=== PATIENT | female | born 1940 | race Caucasian/White ===

== ENCOUNTER 2016-12-11 16:08 | Inpatient (IN) | payer MEDICARE, OTHER ==
[2016-12-11 17:54] LABS: Hematocrit 42.8 % (37.0-47.0); Hemoglobin 13.9 gm/dL (12.5-16.0); Mean Cell Volume 95.7 fl (78-100); Mean Corpuscular Hemoglobin 31.1 pg (27-31); Mean Corpuscular Hgb Conc 32.5 g/dl (32-36); Mean Platelet Volume 11.5 fl (6.0-9.5); Neutrophil # 1.6 K/mm3 (1.3-6.0); Neutrophil % 41.4 % (42-75.0); Platelet Count 122 K/mm3 (150-450); Red Blood Count 4.47 M/mm3 (4.2-5.4); Red Cell Distribution Width 12.2 % (11.5-14.0); White Blood Count 3.9 K/mm3 (4.0-10.5)
[2016-12-11 18:15] LABS: ALT 18 U/L (19-67); AST 15 U/L (0-48); Albumin * 3.3 gm/dl (3.4-5.0); Alkaline Phosphatase * 51 U/L (50-170); Anion Gap 12.9 mmol/L (6.8-13.8); BUN/Creatinine Ratio 13.6 (9.0-21.6); Bilirubin, Total 0.6 mg/dL (0.0-1.1); Blood Urea Nitrogen 12 mg/dL (3-23); Ca. Corrected For Albumin 9.1 mg/dL (8.4-10.2); Calcium * 8.9 mg/dL (7.9-10.9); Carbon Dioxide 29.5 mmol/L (24-32.6); Chloride 101 mmol/L (97-106); Glucose * 102 mg/dL (70-110); Potassium 3.4 mmol/L (3.4-4.6); Sodium 140 mmol/L (132-142); Total Protein 7.4 gm/dL (6.2-8.2); Troponin I Less than 0.017 ng/ml (0.00-0.10)
--- NOTE | 2016-12-11 18:43 | ERNOTE ---
Date of Service: 12/11/16 Time Seen by Provider: 12/11/16 17:15 Stated Complaint: PNEUMONIA Presenting Symptoms:: cough, other - weakness, lightheadedness Source: patient, family, RN notes reviewed, past records Exam Limitations: no limitations Immunizations: IMMUNIZATION HX Immunizations Up to Date Yes History of Influenza Vaccine No Hx Pneumococcal Vaccination Yes Allergies/Adverse Reactions: Allergies Gold Salts Allergy (Intermediate, Verified 12/11/16 16:56) Hives - Pain Score Pain Score #1 Pain Score: 0 - History of Present Ilness Narrative: 76 y/o female brought to the ED by her family for a cough, weakness and lightheadedness that began today. She was discharged from [facility] 2 days ago. She had been treated for pneumonia. She is currently on Biaxin. She also reports having chest pain during her episodes of lightheadedness. Her symptoms seem to start with exertion but improve with rest. She was to see pulmonology for f/u of lung nodules today, but began feeling ill when she was getting ready for her appointment. She reports having COPD but has never been a smoker. Date (Duration): 12/11/16 Timing: intermittent Frequency/Possible Cause: Reports: unknown cause Modifying Factors - Improves: Reports: rest Modifying Factors - Worsens: Reports: activity Associated Symptoms: Reports: chest pain/soreness, cough, shortness of breath, lightheadedness. Denies: wheezing, facial pain, nasal congestion, nasal drainage, dizziness, earache, headache, sore throat, muscle aches Prior Treatment: Reports: recently seen, treated by physician, recently hospitalized, currently on antibiotics Review of Systems - Review of Systems Constitutional: Present: recent illness, weakness, fatigue, malaise. Absent: fever, chills EYE: Present: no symptoms reported ENT: Present: See HPI Respiratory: Present: See HPI Cardiology: Present: See HPI Gastrointestinal/Abdominal: Present: nausea, diarrhea, eating less, drinking less. Absent: vomiting Genitourinary: Absent: frequency, dysuria Musculoskeletal: Present: See HPI Skin: Present: no symptoms reported Neurological: Present: See HPI Endocrine: Present: no symptoms reported Hematologic/Lymphatic: Present: no symptoms reported - Patient's Past Medical History Patient History - Medical: Rheumatoid Arthritis, UTI'S Patient History - Cardiac/Respiratory: COPD, Hypertension, Pneumonia Patient History - Cancer: No Hx of Cancer Patient History - Surgical Procedures: Noncontributory Patient History - Other: Immunosuppresive Tx >3mo LMP (females 10-50): Menopausal - Social History Living Situations: spouse Psych History: No pertinent hx Smoking Status: Never smoker Alcohol Use: none Drug Use: none - Immunizations Immunizations Up to Date: Yes Hx Pneumococcal Vaccination: Yes History of Influenza Vaccine: No Physical Exam - Physical Exam General Appearance: Present: wd/wn, alert, mild distress, obese, other - appears uncomfortable Eye Exam: Normal inspection: bilateral, PERRL: bilateral Ears, Nose, Throat: Present: normal ENT inspection, hearing grossly normal, normal pharynx. Absent: abnormal TM (R), abnormal TM (L), nasal congestion, sinus pain/drainage Neck: Present: normal inspection, nontender, supple Respiratory: Present: no respiratory distress, accessory muscle use - mild dyspnea, expiration (prolonged), rales - left lower lung Cardiovascular/Chest: Present: regular rate, rhythm, no murmur, normal peripheral pulses Gastrointestinal/Abdominal: Present: normal bowel sounds, nontender, nondistended, soft Extremity Exam: Present: normal inspection, no edema Neurological Exam: Present: alert, oriented, normal mood/affect Skin Exam: Present: warm/dry, pallor ED Progress - Results and Orders Patient's Lab Results:: I have reviewed the patient's lab results. - Vital Signs Patient's Vital Signs:: I have reviewed the patient's vital signs. Vital Signs: Vital Signs 12/11/16 16:48 Temperature 35.8 C L Pulse Rate 88 Respiratory 16 Rate Blood Pressure 185/107 O2 Sat by Pulse 92 Oximetry - EKG EKG: NSR EKG read: Reviewed by me - X-Ray X-Ray #1 X-Ray: chest Interpretation: Interp. by me X-ray Comments: consolidation present in left lower lobe - Progress/Reassessment Chief Complaint: Cough Progress:: Improved Progress Note-Subjective: 12/11/16 19:45 Patient verbalizes less respiratory difficulty with oxygen at 2L. Hospitalist contacted regarding admission at 1930. Awaiting a call back. 12/11/16 20:10 Admission as observation status for pneumonia with failure of outpatient treatment discussed with Nikok Tavarez NP. Will initiate IV Levaquin as patient was likely already treated with Zithromax and Rocephin during her first hospitalization. Those records continue to be unavailable. Departure - Departure Clinical Impression: Pneumonia Qualifiers: Pneumonia type: due to unspecified organism Laterality: left Lung location: lower lobe of lung Qualified Code(s): J18.1 - Lobar pneumonia, unspecified organism
[2016-12-11 19:08] LABS: Urine Appearance Clear; Urine Bacteria None Seen; Urine Bilirubin 1 mg/dl (NEGATIVE); Urine Blood Negative /ul (NEGATIVE); Urine Color Yellow; Urine Ketone Negative (NEGATIVE); Urine Nitrite Negative (NEGATIVE); Urine Protein Negative (NEGATIVE); Urine RBC None Seen /hpf (0-5); Urine Specific Gravity 1.025 SP.GR. (1.005-1.010); Urine Urobilinogen Normal (NORMAL); Urine WBC None Seen /hpf (0-5); Urine pH 6.5 pH (5.0-7.0)
[2016-12-11] MEDS: LEVOFLOXACIN/D5W 750 MG/150 ML BAG IV SCH (21:03)
[2016-12-11] MEDS ORDERED: ALBUTEROL SULFATE/IPRATROPIUM 3 ML NEBU IH SCH (23:30)
--- NOTE | 2016-12-11 23:37 | HP ---
Chief Complaint - Chief Complaint Date of Service: 12/11/16 Time of Service: 23:14 Chief Complaint: Shortness of breath, non productive cough, weakness, Diarrhea History of Present Illness: 76 years old female adm to the hospital with reports of non productive cough, chills and shortness of breath. PMH significant for COPD, pneumonia, hypertension and RA. Pt stated a week ago she began experiencing increased shortness of breath, non productive cough and chills while at home. She was seen in walk-in clinic, diagnosed with pneumonia and DC home with antibiotics x4 days. she completed the regimen and s/s persist despite treatment. Her family brought her to [facility] where she was adm and treated in-pt x3 days and DC Wednesday with oral antibiotic ( Biaxin). Today pt was seen at [facility] ER due to reports of continued cough, shortness of breath, lightheadedness , weakness and diarrhea. She denies exposure to other sick person, no fever or chills and stated she have not been using her medications for her COPD recently. Pt stated since she started on the antibiotic regimen she has been having diarrhea. Last bowel movement was earlier before this adm. - Patient's Past Medical History Patient History - Medical: Rheumatoid Arthritis, UTI'S Patient History - Cardiac/Respiratory: COPD, Deep Vein Thrombosis, Hypertension , Pneumonia Patient History - Cancer: No Hx of Cancer Patient History - Surgical Procedures: Appendectomy, Other Patient History - Other: Immunosuppresive Tx >3mo LMP (females 10-50): Menopausal - Family History Father Family History - Medical: Family History - Cardiac/Respiratory: Aneurysm, Coronary Heart Disease - Social History Living Situations: home Psych History: No pertinent hx Smoking Status: Never smoker Have you smoked in the past 12 months: No Alcohol Use: none Drug Use: none - Immunizations Immunizations Up to Date: Yes Hx Pneumococcal Vaccination: Yes History of Influenza Vaccine: No Review Of Systems (GEN) - Review of Systems Generalized/Overall Review: Present: Chills EENTM: Present: No Symptoms Reported Respiratory: Present: Cough, Shortness of Breath Cardiac: Present: No Symptoms Reported Abdominal: Present: Diarrhea Genitourinary: Present: Frequency, Incontinent Musculoskeletal: Present: Joint Pain Neurological: Present: No Symptoms Reported Skin: Present: No Symptoms Reported Endocrine: Present: No Symptoms Reported Allergies/Adverse Reactions: Allergies Allergy/AdvReac Type Severity Reaction Status Date / Time Gold Salts Allergy Intermediate Hives Verified 12/11/16 16:56 Iodinated Contrast Media - Allergy Intermediate Swelling Verified 12/11/16 21:20 IV Dye of Face Home Medications: HOME MEDICATIONS Budesonide/Formoterol Fumarate [Symbicort 160-4.5 Mcg Inhaler] 2 puff IH BID 01/22 [Last Taken 12/11/16] Leflunomide 20 mg PO DAILY 12/11/16 [Last Taken 12/11/16] Losartan Potassium [Cozaar] 50 mg PO BID 12/11/16 [Last Taken 12/11/16] Metoprolol Tartrate [Lopressor] 100 mg PO BID 12/11/16 [Last Taken 12/11/16] Sulfasalazine [Sulfazine] 1,000 mg PO BID 12/11/16 [Last Taken 12/11/16] amLODIPine BESYLATE [Norvasc] 5 mg PO DAILY 12/11/16 [Last Taken 12/11/16] Exam - Exam Vital Signs: Vital Signs - Last Taken Temp 36.4 C L 12/11/16 21:07 Pulse 88 12/11/16 21:07 Resp 18 12/11/16 21:07 BP 137/92 12/11/16 21:07 Pulse Ox 93 12/11/16 21:07 Constitutional: Present: Alert, Oriented x3, Cooperative, Well developed, No distress, Elderly, Obese ENT Exam: Present: moist mucous membranes Eye Exam: bilateral eye: PERRL Neck: Present: full range of motion Back Exam: Present: normal inspection, no CVA tenderness, no vertebral tenderness Breasts: Present: Exam deferred Respiratory: Present: chest non-tender, normal breath sounds, no respiratory distress, no accessory muscle use, rales Cardiovascular/Chest: Present: normal peripheral pulses, regular rate, rhythm, no chest tenderness, no edema, no gallop, no JVD, no murmur Peripheral Pulses: dorsalis-pedis (R): 2+, dorsalis-pedis (L): 2+ Abdomen: Present: Normal bowel sounds, soft, nontender, nondistended, no rebound tenderness /Rectal: Present: Exam deferred Extremity: Present: normal range of motion, non-tender, normal inspection, no pedal edema, no calf tenderness Skin Exam: Present: normal color, warm/dry, no cyanosis Lymphatic: Present: no adenopathy Neurologic: Present: oriented x 3 Appearance: Present: appropriate appearance Eye contact: Present: good eye contact Thoughts: Present: normal thought pattern Diagnostic Studies: Laboratory Results WBC 3.9 K/mm3 (4.0-10.5) L 12/11/16 17:35 RBC 4.47 M/mm3 (4.2-5.4) 12/11/16 17:35 Hgb 13.9 gm/dL (12.5-16.0) 12/11/16 17:35 Hct 42.8 % (37.0-47.0) 12/11/16 17:35 MCV 95.7 fl (78-100) 12/11/16 17:35 MCH 31.1 pg (27-31) H 12/11/16 17:35 MCHC 32.5 g/dl (32-36) 12/11/16 17:35 RDW 12.2 % (11.5-14.0) 12/11/16 17:35 Plt Count 122 K/mm3 (150-450) L 12/11/16 17:35 MPV 11.5 fl (6.0-9.5) H 12/11/16 17:35 Immature Gran % (Auto) 0.30 % (0.001-0.429) 12/11/16 17:35 Immature Gran # (Auto) 0.01 K/mm3 (0.000-0.0310) 12/11/16 17:35 Neutrophils % 41.4 % (42-75.0) L 12/11/16 17:35 Lymphocytes % 40.5 % (20-51) 12/11/16 17:35 Monocytes % 11.7 % (0.0-9) H 12/11/16 17:35 Eosinophils % 4.6 % (0.0-3.0) H 12/11/16 17:35 Basophils % 1.5 % (0.0-1.0) H 12/11/16 17:35 Nucleated RBC % 0.0 k/mm3 (0-1) 12/11/16 17:35 Neutrophils # 1.6 K/mm3 (1.3-6.0) 12/11/16 17:35 Lymphocytes # 1.6 k/mm3 (1.5-3.5) 12/11/16 17:35 Monocytes # 0.5 k/mm3 (0.0-1.0) 12/11/16 17:35 Eosinophils # 0.2 k/mm3 (0.0-0.7) 12/11/16 17:35 Absolute Basophils 0.1 k/mm3 (0.0-0.1) 12/11/16 17:35 Sodium 140 mmol/L (132-142) 12/11/16 17:35 Plasma Sodium 140 mmol/L (130-142) 12/11/16 17:35 Potassium 3.4 mmol/L (3.4-4.6) 12/11/16 17:35 Chloride 101 mmol/L (97-106) 12/11/16 17:35 Carbon Dioxide 29.5 mmol/L (24-32.6) 12/11/16 17:35 Anion Gap 12.9 mmol/L (6.8-13.8) 12/11/16 17:35 BUN 12 mg/dL (3-23) 12/11/16 17:35 Creatinine 0.88 mg/dL (0.4-1.4) 12/11/16 17:35 Est GFR (Non-Af Amer) 67 mL/min (60-130) 12/11/16 17:35 BUN/Creatinine Ratio 13.6 (9.0-21.6) 12/11/16 17:35 Random Glucose 102 mg/dL (70-110) 12/11/16 17:35 Calcium 8.9 mg/dL (7.9-10.9) 12/11/16 17:35 Calcium Adj for Albumin 9.1 mg/dL (8.4-10.2) 12/11/16 17:35 Total Bilirubin 0.6 mg/dL (0.0-1.1) 12/11/16 17:35 AST 15 U/L (0-48) 12/11/16 17:35 ALT 18 U/L (19-67) L 12/11/16 17:35 Alkaline Phosphatase 51 U/L (50-170) 12/11/16 17:35 Troponin I Less than 0.017 ng/ml (0.00-0.10) 12/11/16 17:35 Total Protein 7.4 gm/dL (6.2-8.2) 12/11/16 17:35 Albumin 3.3 gm/dl (3.4-5.0) L 12/11/16 17:35 Urine Color Yellow 12/11/16 18:40 Urine Appearance Clear 12/11/16 18:40 Urine pH 6.5 pH (5.0-7.0) 12/11/16 18:40 Ur Specific Exchange 1.025 SP.GR. (1.005-1.010) 12/11/16 18:40 Urine Protein Negative mg/dL (NEGATIVE) 12/11/16 18:40 Urine Glucose (UA) Negative mg/dL (NEGATIVE) 12/11/16 18:40 Urine Ketones Negative mg/dL (NEGATIVE) 12/11/16 18:40 Urine Blood Negative /ul (NEGATIVE) 12/11/16 18:40 Urine Nitrate Negative (NEGATIVE) 12/11/16 18:40 Urine Bilirubin 1 mg/dl (NEGATIVE) H 12/11/16 18:40 Urine Ictotest Negative (NEGATIVE) 12/11/16 18:40 Urine Urobilinogen Normal EU/dl (NORMAL) 12/11/16 18:40 Ur Leukocyte Esterase Negative /ul (NEGATIVE) 12/11/16 18:40 Urine RBC None seen /hpf (0-5) 12/11/16 18:40 Urine WBC None seen /hpf (0-5) 12/11/16 18:40 Ur Epithelial Cells 0-5 /hpf (0-5) 12/11/16 18:40 Urine Bacteria None seen (NONE) 12/11/16 18:40 Urine Culture Comments No culture indicated 12/11/16 18:40 Assessment/Plan - Narrative Narrative: Pneumonia Pt stated she was diagnosed with pneumonia 7 days ago. She was treated with oral antibiotics and failed treatment. She was adm to [facility] and treated with IV antbx x3days and DC home with oral antibiotics (Biaxin). However s/s persist Continue with IV antibiotics, nebulizer schedule and encourage use of I/S and supplemented oxygen PRN Mucinex 600mg BID CXR: Left lobe consolidation Blood culture and sputum cultures pending Leukopenia- secondary to Leflunomide use On adm WBC 3.9 Continue to monitor,pt follow up with Hydramatic Specialist. CBC in am COPD likely exacerbation in presence of pneumonia, pt have not been using her maintenance home mediations. Duoneb treatment schedule Encourage use of I/S Continue with symbicort Supplemented oxygen PRN Rheumatoid Arthritis - stable Continue with Leflunomide and Sulfazone Diarrhea- likely due to IV/Oral antibiotics use Pt stated last bowel movement was earlier before this adm. Stool for C-diff pending Lactobacillus daily Hypertension- stable Continue home medication Monitor VS Q shift and pRN. Code Status Full VTE ppx: SCD and ambulate GI ppx: pepcid. Anticipate DC home 0-1 day Time 45 minutes - Assessment/Plan (1) Rheumatoid arthritis Problem: Chronic (2) Pneumonia Problem: Acute Qualifiers: Pneumonia type: due to unspecified organism Laterality: left Lung location: lower lobe of lung Qualified Code(s): J18.1 - Lobar pneumonia, unspecified organism (3) COPD (chronic obstructive pulmonary disease) Problem: Chronic
[2016-12-12] MEDS ORDERED: ALBUTEROL SULFATE/IPRATROPIUM 3 ML NEBU IH ONE (00:26)
[2016-12-12] MEDS: ALBUTEROL SULFATE/IPRATROPIUM 3 ML NEBU IH SCH ×5 (00:34→18:10)
[2016-12-12] MEDS ORDERED: NORMAL SALINE 1,000 ML IV PRN (05:49)
--- NOTE | 2016-12-12 05:52 | PN ---
Subjective - Date and Time Seen Date: 12/12/16 Time: 05:46 Subjective Narrative: Patient seen this morning in bed stated she was feeling hungry and shortness of breath had resolved. She had productive cough overnight with clear sputum. Pt verbalized understanding for the need to be adherent to her COPD medications while at home. her s/s will gradually improve when using medication as prescribed vs not taking them upon discharge and feels like her s/s not improving. Objective - Review of Systems Generalized/Overall Review: Reports: No Symptoms Reported EENTM: Reports: No Symptoms Reported Respiratory: Reports: Cough Cardiac: Reports: No Symptoms Reported Abdominal: Reports: No Symptoms Reported Genitourinary Symptoms: Reports: No Symptoms Reported Musculoskeletal Complaints: Reports: No Symptoms Reported Neurological: Reports: No Symptoms Reported Skin: Reports: No Symptoms Reported Endocrine: Reports: No Symptoms Reported - Vitals Vitals: Last Vital Signs Temp 36.6 C 12/12/16 02:38 Pulse 79 12/12/16 02:38 Resp 16 12/12/16 02:38 BP 113/57 12/12/16 02:38 Pulse Ox 91 12/12/16 02:38 - Exam Constitutional: Present: Alert, Oriented x3, Cooperative, Well developed, No distress ENT Exam: Present: normal ENT inspection, moist mucous membranes Neck: Present: full range of motion Respiratory: Present: chest non-tender, no respiratory distress, no accessory muscle use, decreased breath sounds, rales Cardiovascular/Chest: Present: normal peripheral pulses, regular rate, rhythm, no chest tenderness, no edema Abdomen: Present: Normal bowel sounds, soft, nontender, nondistended, no rebound tenderness /Rectal: Present: Exam deferred Extremity: Present: normal range of motion, non-tender, normal inspection, no pedal edema, no calf tenderness Skin Exam: Present: normal color, warm/dry, no cyanosis Neurologic: Present: oriented x 3 Appearance: Present: appropriate appearance Eye contact: Present: cooperative Thoughts: Present: normal thought pattern Assessment/Plan Plan Narrative: Pneumonia Failed out-pt treatment and was treated in-pt: DC home with Biaxin however s/s persist. Continue with IV Levaquin 750mg Q24hrs. Nebulizer schedule and encourage use of I/S and supplemented oxygen PRN Mucinex 600mg BID CXR: Left lobe consolidation Blood culture and sputum cultures still pending May have repeated CXR in 4 weeks upon discharge Leukopenia- secondary to Leflunomide use On adm WBC 3.9 Continue to monitor,pt follow up with Senior Data Developer. CBC in am COPD likely exacerbation in presence of pneumonia, pt have not been using her maintenance home mediations. Duoneb treatment schedule Encourage use of I/S Continue with symbicort Supplemented oxygen PRN Rheumatoid Arthritis - stable Continue with Leflunomide and Sulfazone Diarrhea- likely due to IV/Oral antibiotics use Last bowel movement yesterday Stool for C-diff pending Initiated Lactobacillus daily Hypertension- stable Continue home medication Monitor VS Q shift and pRN. Code Status Full VTE ppx: SCD and ambulate GI ppx: pepcid. Anticipate DC home later today Time 15 minutes - Problems/Diagnosis (1) Rheumatoid arthritis Problem: Chronic (2) Pneumonia Problem: Acute Qualifiers: Pneumonia type: due to unspecified organism Laterality: left Lung location: lower lobe of lung Qualified Code(s): J18.1 - Lobar pneumonia, unspecified organism (3) COPD (chronic obstructive pulmonary disease) Problem: Chronic
[2016-12-12] MEDS ORDERED: FLUTICASONE/SALMETEROL 14 PUFF DISK.W.DEV IH SCH (07:00)
[2016-12-12] MEDS ORDERED: FLU VACC QS2016-17 36MOS UP/PF 60 MCG/0.5 ML DISP.SYRIN IM ONE (09:00)
[2016-12-12] MEDS: FLUTICASONE/SALMETEROL 14 PUFF DISK.W.DEV IH SCH ×2 (09:27→20:09)
[2016-12-12] MEDS: LACTOBACILLUS ACIDOPHILUS 100 CAP BTL PO SCH (09:27)
[2016-12-12] MEDS: FAMOTIDINE 20 MG TABLET PO SCH (09:28)
[2016-12-12] MEDS: LOSARTAN POTASSIUM 50 MG TABLET PO SCH ×2 (09:28→20:10)
[2016-12-12] MEDS: amLODIPine BESYLATE 5 MG TABLET PO SCH (09:28)
[2016-12-12] MEDS: sulfaSALAzine 500 MG TABLET PO SCH ×2 (09:28→20:09)
[2016-12-12] MEDS: LEFLUNOMIDE 20 MG TABLET PO SCH (09:28)
[2016-12-12] MEDS: predniSONE 20 MG TABLET PO SCH (09:29)
[2016-12-12] MEDS: METOPROLOL TARTRATE 100 MG TABLET PO SCH ×2 (09:29→20:11)
[2016-12-12] MEDS: ACETAMINOPHEN 500 MG TABLET PO PRN ×3 (10:32→20:07)
[2016-12-12] MEDS: ENOXAPARIN SODIUM 40 MG/0.4 ML SYRG SC SCH (15:35)
[2016-12-12] MEDS: LEVOFLOXACIN/D5W 750 MG/150 ML BAG IV SCH (20:54)
[2016-12-13] MEDS: ALBUTEROL SULFATE/IPRATROPIUM 3 ML NEBU IH SCH ×2 (00:37→06:02)
[2016-12-13 05:14] LABS: Hematocrit 38.6 % (37.0-47.0); Hemoglobin 12.7 gm/dL (12.5-16.0); Mean Cell Volume 95.3 fl (78-100); Mean Corpuscular Hemoglobin 31.4 pg (27-31); Mean Corpuscular Hgb Conc 32.9 g/dl (32-36); Mean Platelet Volume 11.3 fl (6.0-9.5); Neutrophil % 64.3 % (42-75.0); Platelet Count 131 K/mm3 (150-450); Red Blood Count 4.05 M/mm3 (4.2-5.4); White Blood Count 4.6 K/mm3 (4.0-10.5)
[2016-12-13 05:24] LABS: Anion Gap 14.7 mmol/L (6.8-13.8); BUN/Creatinine Ratio 14.5 (9.0-21.6); Carbon Dioxide 25.9 mmol/L (24-32.6); Estimated Creat Clear 54.8; Potassium 3.6 mmol/L (3.4-4.6)
--- NOTE | 2016-12-13 06:19 | PN ---
Subjective - Date and Time Seen Date: 12/13/16 Time: 06:09 Subjective Narrative: Patient seen today stated her cough was getting better. she anticipating getting repeated CXR in 4-6 weeks and continued use of her COPD medications upon discharge. She denies fever, chills, shortness of breath or chest pain from cough. Objective - Review of Systems Generalized/Overall Review: Reports: No Symptoms Reported EENTM: Reports: No Symptoms Reported Respiratory: Reports: Cough Cardiac: Reports: No Symptoms Reported Abdominal: Reports: No Symptoms Reported Genitourinary Symptoms: Reports: No Symptoms Reported Musculoskeletal Complaints: Reports: No Symptoms Reported Neurological: Reports: No Symptoms Reported Skin: Reports: No Symptoms Reported Endocrine: Reports: No Symptoms Reported - Vitals Vitals: Last Vital Signs Temp 37.0 C 12/13/16 02:00 Pulse 80 12/13/16 06:02 Resp 20 12/13/16 06:02 BP 124/69 12/13/16 02:00 Pulse Ox 92 12/13/16 06:02 - Abnormal Lab Findings Abnormal Lab Findings: Abnormal Lab Results 12/13/16 12/13/16 Range/Units 04:50 05:00 RBC 4.05 L (4.2-5.4) M/mm3 MCH 31.4 H (27-31) pg Plt Count 131 L (150-450) K/mm3 MPV 11.3 H (6.0-9.5) fl Monocytes % 14.5 H (0.0-9) % Lymphocytes # 0.9 L (1.5-3.5) k/mm3 Anion Gap 14.7 H (6.8-13.8) mmol/L Random Glucose 135 H D (70-110) mg/dL - Exam Constitutional: Present: Alert, Oriented x3, Cooperative, Well developed, No distress, Elderly, Obese ENT Exam: Present: moist mucous membranes Neck: Present: full range of motion Breasts: Present: Exam deferred Respiratory: Present: chest non-tender, normal breath sounds, no respiratory distress, wheezing Cardiovascular/Chest: Present: normal peripheral pulses, regular rate, rhythm, no chest tenderness, no edema, no gallop, no JVD Abdomen: Present: Normal bowel sounds, soft, nontender, nondistended /Rectal: Present: Exam deferred Extremity: Present: normal range of motion, non-tender, normal inspection, no pedal edema, no calf tenderness Skin Exam: Present: normal color, warm/dry Neurologic: Present: oriented x 3 Appearance: Present: appropriate appearance Eye contact: Present: cooperative Thoughts: Present: no apparent hallucination Assessment/Plan Plan Narrative: COPD likely exacerbation in presence of pneumonia, pt have not been using her maintenance home mediations. Duoneb treatment schedule Encourage use of I/S Continue with symbicort and prednisone was started yesterday. Supplemented oxygen PRN Pneumonia Failed out-pt treatment and was treated in-pt: DC home with Biaxin however s/s persist. Continue with IV Levaquin 750mg Q24hrs. Nebulizer schedule and encourage use of I/S and supplemented oxygen PRN Mucinex 600mg BID 12/11/16 Repeated CXR: No acute cardiopulmonary process. Blood culture and sputum cultures no growth May have repeated CXR in 4-6 weeks upon discharge Rheumatoid Arthritis - stable Continue with Leflunomide and Sulfazone Diarrhea- likely due to IV/Oral antibiotics use Last bowel movement was yesterday prior to adm. Stool for C-diff pending Initiated Lactobacillus daily Hypertension- stable Continue home medication Monitor VS Q shift and pRN. Leukopenia- secondary to Leflunomide use- Resolved On adm WBC 3.9--->4.6 WNL Continue follow up with Radiagraph Operator. CBC in am Code Status Full VTE ppx: SCD/ Lovenox and ambulate GI ppx: pepcid. Anticipate DC home Wednesday Time 15 minutes - Problems/Diagnosis (1) Rheumatoid arthritis Problem: Chronic (2) Pneumonia Problem: Acute Qualifiers: Pneumonia type: due to unspecified organism Laterality: left Lung location: lower lobe of lung Qualified Code(s): J18.1 - Lobar pneumonia, unspecified organism (3) COPD (chronic obstructive pulmonary disease) Problem: Chronic
[2016-12-13] MEDS: ACETAMINOPHEN 500 MG TABLET PO PRN ×2 (07:29→20:27)
[2016-12-13] MEDS: METOPROLOL TARTRATE 100 MG TABLET PO SCH ×2 (09:06→20:20)
[2016-12-13] MEDS: LEFLUNOMIDE 20 MG TABLET PO SCH (09:06)
[2016-12-13] MEDS: LACTOBACILLUS ACIDOPHILUS 100 CAP BTL PO SCH (09:06)
[2016-12-13] MEDS: sulfaSALAzine 500 MG TABLET PO SCH ×2 (09:06→20:19)
[2016-12-13] MEDS: FLUTICASONE/SALMETEROL 14 PUFF DISK.W.DEV IH SCH ×2 (09:06→20:18)
[2016-12-13] MEDS: LOSARTAN POTASSIUM 50 MG TABLET PO SCH ×2 (09:07→20:19)
[2016-12-13] MEDS: FAMOTIDINE 20 MG TABLET PO SCH (09:07)
[2016-12-13] MEDS: predniSONE 20 MG TABLET PO SCH (09:07)
[2016-12-13] MEDS: amLODIPine BESYLATE 5 MG TABLET PO SCH (09:07)
[2016-12-13] MEDS: LEVALBUTEROL HCL 1.25 MG/3 ML AMPUL IH SCH ×4 (13:31→18:15)
[2016-12-13] MEDS: ENOXAPARIN SODIUM 40 MG/0.4 ML SYRG SC SCH (14:50)
[2016-12-13] MEDS ORDERED: LEVOFLOXACIN/D5W 750 MG/150 ML BAG IV SCH (21:00)
[2016-12-14] MEDS: LEVALBUTEROL HCL 1.25 MG/3 ML AMPUL IH SCH ×2 (00:22→06:21)
[2016-12-14 05:51] LABS: Anion Gap 12.1 mmol/L (6.8-13.8); BUN/Creatinine Ratio 25.3 (9.0-21.6); Carbon Dioxide 28.1 mmol/L (24-32.6); Estimated Creat Clear 52.3; Potassium 4.2 mmol/L (3.4-4.6)
[2016-12-14 06:40] LABS: Hematocrit 39.2 % (37.0-47.0); Hemoglobin 12.6 gm/dL (12.5-16.0); Mean Cell Volume 96.8 fl (78-100); Mean Corpuscular Hemoglobin 31.1 pg (27-31); Mean Corpuscular Hgb Conc 32.1 g/dl (32-36); Mean Platelet Volume 10.7 fl (6.0-9.5); Neutrophil # 3.2 K/mm3 (1.3-6.0); Neutrophil % 59.5 % (42-75.0); Platelet Count 159 K/mm3 (150-450); Red Blood Count 4.05 M/mm3 (4.2-5.4); Red Cell Distribution Width 12.2 % (11.5-14.0); White Blood Count 5.3 K/mm3 (4.0-10.5)
--- NOTE | 2016-12-14 07:00 | DS ---
(1) Rheumatoid arthritis Problem: Chronic (2) Pneumonia Problem: Acute Qualifiers: Pneumonia type: due to unspecified organism Laterality: left Lung location: lower lobe of lung Qualified Code(s): J18.1 - Lobar pneumonia, unspecified organism (3) COPD (chronic obstructive pulmonary disease) Problem: Chronic Description of Stay: Date of admission: 12/12/16 Date of discharge : 12/14/16 Hospital Course 76 years old female adm to the hospital with reports of non productive cough, chills and shortness of breath. PMH significant for COPD, pneumonia, hypertension and RA. Pt stated a week ago she began experiencing increased shortness of breath, non productive cough and chills while at home. She was seen in walk-in clinic, diagnosed with pneumonia and DC home with antibiotics x4 days. she completed the regimen and s/s persist despite treatment. Her family brought her to [facility] where she was adm and treated in-pt x3 days and DC Wednesday with oral antibiotic ( Biaxin). She was adm at [facility] due to reports of continued cough, shortness of breath, lightheadedness, weakness and diarrhea. She denies exposure to other sick person, no fever or chills and stated she have not been using her medications for her COPD recently. Pt stated since she started on the antibiotic regimen she has been having diarrhea. During this adm she was treated with IV antibiotics, nebulizers and oral Prednisone 40 mg q daily. pt stated her s/s had improved tremendously and diarrhea resolved. Repeated CXR: No acute cardiopulmonary findings. Leukopenia and thrombocytopenia likely due to her medications.Plan to follow up with [facility] upon discharge. Patient instructed that it can take up to 5 days for every day in the hospital before getting back to baseline as far as strength goes. Thus, it will likely take 3+ weeks before the patient feels back to her usual self and the generalized weakness resolves. I also discussed that it can take 4-6 weeks for the cough to resolve following an acute illness like this. Plan of care discussed with pt she verbalized understanding and agree. Procedures Performed: none Results and Findings: Laboratory Tests 12/11/16 12/13/16 12/14/16 17:35 05:00 05:15 WBC 3.9 L 4.6 3.5 L D RBC 4.47 3.81 L Hgb 13.9 11.9 L Hct 42.8 37.6 Plt Count 122 L 131 L 31 L Sodium 140 Potassium 4.2 BUN 22 D Creatinine 0.87 Discharge Disposition: Home self care Disposition: Home self-care Condition: Stable Discharge Activity: Activity as tolerated Discharge Diet: General/regular food Additional Patient Instructions (free text): Follow up with PCP 3-7 days call for appt. Prescriptions (Any new or edited meds): Levalbuterol HCl [Xopenex] 1.25 mg IH Q6HRT 7 Days guaiFENesin [Mucinex] 600 mg PO BID 7 Days predniSONE [Prednisone] 40 mg PO DAILY #5 tablet Complete Home Medications List: Complete Home Medication List: Budesonide/Formoterol Fumarate [Symbicort 160-4.5 Mcg Inhaler] 2 puff IH BID 01/22 Leflunomide 20 mg PO DAILY 12/11/16 Losartan Potassium [Cozaar] 50 mg PO BID 12/11/16 Metoprolol Tartrate [Lopressor] 100 mg PO BID 12/11/16 Sulfasalazine [Sulfazine] 1,000 mg PO BID 12/11/16 amLODIPine BESYLATE [Norvasc] 5 mg PO DAILY 12/11/16 Lactobacillus Acidophilus [Bacid] 1 cap PO DAILY #4 btl 12/14/16 Levalbuterol HCl [Xopenex] 1.25 mg IH Q6HRT 7 Days 12/14/16 guaiFENesin [Mucinex] 600 mg PO BID 7 Days 12/14/16 predniSONE [Prednisone] 40 mg PO DAILY #5 tablet 12/14/16 Amb Orders for Discharge: Chest PA & Lateral * Time Frame: 4 Weeks, Location: Determined By Patient
[2016-12-14] MEDS: amLODIPine BESYLATE 5 MG TABLET PO SCH (08:17)
[2016-12-14] MEDS: FLUTICASONE/SALMETEROL 14 PUFF DISK.W.DEV IH SCH (08:17)
[2016-12-14] MEDS: METOPROLOL TARTRATE 100 MG TABLET PO SCH (08:18)
[2016-12-14] MEDS: LOSARTAN POTASSIUM 50 MG TABLET PO SCH (08:18)
[2016-12-14] MEDS: FAMOTIDINE 20 MG TABLET PO SCH (08:18)
[2016-12-14] MEDS: predniSONE 20 MG TABLET PO SCH (08:20)
[2016-12-14] MEDS: LACTOBACILLUS ACIDOPHILUS 100 CAP BTL PO SCH (08:21)
[2016-12-14] MEDS: sulfaSALAzine 500 MG TABLET PO SCH (08:28)
[2016-12-14] MEDS: LEFLUNOMIDE 20 MG TABLET PO SCH (08:52)
[2016-12-14 10:40] VITALS: BP 111/63
== END 2016-12-14 11:05 | disposition home or self-care (01) | DRG 195 ==
LOC: ER 16:08 → MS 20:13 → OBSVTOIN 12-12 09:26
PROVIDERS: ADMIT Nurse Practitioner Gerontology; ATTEND Internal Medicine
DX: J18.1 Lobar pneumonia, unspecified organism (principal); R53.1 Weakness; J44.9 Chronic obstructive pulmonary disease, unspecified; I10 Essential (primary) hypertension; D72.819 Decreased white blood cell count, unspecified; T39.4X5A Adverse effect of antirheumatics, not elsewhere classified, initial encounter; M06.9 Rheumatoid arthritis, unspecified; Z23 Encounter for immunization
CPT/HCPCS: 36415; 71020; 80048; 80053; 81001; 84484; 85025; 87040; 87070; 87106; 90686; 93005; 94640; 96374; 99284; G0008; G0378

== ENCOUNTER 2016-12-31 16:43 | Observation (INO) | payer MEDICARE, OTHER ==
--- OUTSIDE RECORDS SUMMARY | 2016-12-31 16:49 | XMS REPORT | Continuity of Care Document ---
:1940 Author Organization [facility] [place] [address] Care Team Providers Name Role Phone Juan Luis Perez Primary Care Provider [phone] Source Comments This disclosure is being made pursuant to the [employer] program and maynot contain all information available regarding this patient.[facility] Active Allergies and Adverse Reactions Allergen Noted Date Severity Reactions Comments Gold-Containing Drug Products 08/06/2014 High Hives Lisinopril 08/06/2014 Cough Ridaura 08/06/2014 High Hives Gold Salts Current Medications Be aware that medications may not be up to date as of this document. Alwaysverify current medications with the patient. Prescription Sig. Disp. Refills Start End Date Status Date amLODIPine Take 1 tablet by 90 tablet 3 Active (NORVASC) 5 MG mouth daily. 6 tablet metoprolol Take 1 tablet by 180 tablet 3 Active succinate mouth 2 (two) 6 (TOPROL-XL) 100 MG times daily. 24 hr tablet traMADol (ULTRAM) Take 1 tablet by 90 tablet 5 Active 50 MG tablet mouth 3 (three) 6 times daily. [facility] [phone] leflunomide (ARAVA) Take 1 tablet by 30 tablet 11 Active 20 MG tablet mouth daily. 6 acetaminophen Take 500 mg by Active (TYLENOL) 500 MG mouth every 6 tablet (six) hours as needed for Pain. aspirin 325 MG Take 325 mg by Active tablet mouth daily. budesonide-formoter Inhale 2 puffs 1 Inhaler 4 Active ol (SYMBICORT) into the lungs 2 7 160-4.5 MCG/ACT (two) times inhaler daily. oxybutynin Take 1 tablet by 10 tablet 0 Active (DITROPAN-XL) 10 MG mouth daily. 7 24 hr tablet albuterol (PROAIR Inhale 2 puffs 1 Inhaler 3 Active HFA;PROVENTIL into the lungs 7 HFA;VENTOLIN HFA) every 4 (four) 108 (90 Base) hours as needed MCG/ACT inhaler for Wheezing or Shortness of Breath. albuterol (ACCUNEB) Take 3 mLs by 60 mL 3 Active 0.63 MG/3ML nebulization 7 nebulizer solution every 4 (four) hours as needed for Wheezing or Shortness of Breath. sulfaSALAzine TAKE 2 TABLETS BY 360 tablet 12 Active (AZULFIDINE) 500 MG MOUTH 2 TIMES A 7 tablet DAY losartan (COZAAR) TAKE 1 TABLET BY 180 tablet 3 Active 50 MG tablet MOUTH 2 TIMES A 7 DAY losartan (COZAAR) TAKE 1 TABLET(S) 180 tablet 3 12/29/19 Discontinued 50 MG tablet BY MOUTH 2 TIMES 5 17 PER DAY sulfaSALAzine Take 2 tablets by 360 tablet 3 12/24/19 Discontinued (AZULFIDINE) 500 MG mouth 2 (two) 6 17 tablet times daily. Hydrocodone Take 5 mLs by 120 mL 0 12/15/19 polistirex-cpm ER mouth every 12 7 17 (TUSSIONEX) 10-8 (twelve) hours as MG/5ML suspension needed (for cough. may make drowsy.). clarithromycin Take 1 tablet by 20 tablet 0 12/23/19 Discontinued (BIAXIN) 500 MG mouth 2 (two) 7 17 tablet times daily. Hospital, Clinic, or Ordered Dose Route Frequency Start Date End Date Status Other Facility Administered Medication methylPREDNISolone 80mg IM Once 12/03/2016 Ended acetate (DEPO-MEDROL) 7 injection ipratropium-albuterol 1{each} NEBULIZATION Once 12/06/2016 Ended (DUONEB) 0.5-2.5 (3) 7 MG/3ML nebulizer solution Active Problems Problem Noted Date SOB (shortness of breath) 11/12/2016 Chronic obstructive pulmonary disease (HCC) 11/10/2016 Chest pain 09/09/2016 Dyspnea 09/09/2016 Obesity 09/09/2016 Long-term use of immunosuppressant medication 08/25/2016 Seropositive rheumatoid arthritis (HCC) 06/17/2016 Rheumatoid arthritis (HCC) 06/19/2015 Lumbago 06/19/2015 Encounter for long-term (current) use of other medications 06/19/2015 Muscle cramps 06/19/2015 Most Recent Encounters Date Type Specialty Providers Description 12/29/2016 Refill Rheumatology Jj Pruitt MD 12/28/2016 Telephone Pulmonology Temitope Ortiz, Medication Management GRINDING SUPERVISOR 12/24/2016 Refill Rheumatology Jj Pruitt MD 12/23/2016 Office Visit Pulmonology Zbigniew Wilkins, Chronic obstructive MD pulmonary disease, unspecified COPD type ([facility]) (Primary Dx); Lung nodule 12/06/2016 Clinical Support Radiology Sly, Cough MD Michelle Ohara Shelbey D, RTR 12/06/2016 Office Visit Urgent Care Sly Cough (Primary Dx); MD Lev Acute upper respiratory infection 12/03/2016 Office Visit Urgent Care Abhijit Tan, Acute bronchitis, DO unspecified organism (Primary Dx); Acute maxillary sinusitis, recurrence not specified 11/19/2016 Orders Only Pulmonology Temitope Ortiz, Lung nodules (Primary GRINDING SUPERVISOR Dx) 11/18/2016 Clinical Support Radiology Zbigniew Wilkins, SOB (shortness of MD breath) Marianela Nobles, RT 11/12/2016 Initial consult Pulmonology Zbigniew Wilkins SOB (shortness of MD breath) (Primary Dx); Chronic obstructive pulmonary disease, unspecified COPD type (HCC) 11/12/2016 Clinical Support Respiratory Therapy Zbigniew Wilkins, Chronic obstructive MD pulmonary disease, Andrews, unspecified COPD type Mima Stein, PSYCH COORDINATOR (HCC) (Primary Dx) 11/10/2016 Clinical Support Radiology Nica Cerna, Screening for MD osteoporosis; Family Beth, history of bone cancer Eugenia, ANDRESSA 11/10/2016 Office Visit Rheumatology Jj Pruitt MD arthritis ([facility]) (Primary Dx); Long-term use of immunosuppressant medication; Chronic obstructive pulmonary disease, unspecified COPD type ([facility]); Acute non-recurrent maxillary sinusitis 10/22/2016 Data Import 10/06/2016 Clinical Support Radiology Nica Cerna, Screening mammogram, encounter for Rosmery Rabago, RT 10/06/2016 Office Visit Obstetrics and Nica Cerna, Encounter for Gynecology MD gynecological examination without abnormal finding (Primary Dx); Screening mammogram, encounter for; Screening for osteoporosis; Family history of bone cancer 10/06/2016 Scanned Document Provider, Not In System Immunizations Name Dates Previously Given Next Due Influenza, Inactivated, Trivalent, High Dose, 65Y and 08/17/2016 Older Social History Tobacco Use Types Packs/Day Years Used Date Never Smoker Smokeless Tobacco: Never Used Tobacco Cessation:Counseling Given: No Comments: Alcohol Use Drinks/Week oz/Week Comments No Last Filed Vital Signs Vital Sign Reading Time Taken Blood Pressure 131/72 12/23/2016 2:54 PM BRIDGE DESIGN ENGINEER Pulse 105 12/23/2016 2:54 PM BRIDGE DESIGN ENGINEER Temperature 36.3 C (97.3 F) 12/23/2016 2:54 PM BRIDGE DESIGN ENGINEER Respiratory Rate 20 12/23/2016 2:54 PM BRIDGE DESIGN ENGINEER Height 1.676 m (5' 6") 12/23/2016 2:54 PM BRIDGE DESIGN ENGINEER Weight 113.581 kg (250 lb 6.4 oz) 12/23/2016 2:54 PM BRIDGE DESIGN ENGINEER Body Mass Index 40.44 12/23/2016 2:54 PM BRIDGE DESIGN ENGINEER Oxygen Saturation 92% 12/23/2016 2:54 PM BRIDGE DESIGN ENGINEER Plan of Care Date Type Specialty Providers Description 01/13/2017 Appointment Rheumatology Jj Pruitt MD [address] [place] [address] 1 [place] [address] [phone] (Fax) 01/18/2017 Appointment Pulmonology Zibgniew Wilkins MD [address] [place] [address] [address] [place] [address] [phone] (Fax) 05/17/2017 Appointment Cardiology Aleena Townsend MD [address] [place] [address] [phone] (Fax) 10/08/2017 Appointment Obstetrics and Gynecology Nica Cerna MD [address] [place] [address] [phone] (Fax) 11/22/2017 Appointment Radiology Health Maintenance Due Date Last Done Comments Tetanus/Pertussis (1 - Tdap) 1960 Colonoscopy 1991 Zoster Vaccine 60+ 2001 Pneumococcal Low/Medium Risk 65+ (1 of 2 - PCV13) 2006 Well Adult Visit 10/06/2017 10/06/2016 Influenza Immunization Completed 08/17/2016 Bone Density Completed 11/10/2016 Results from Last 3 Months Manual Differential (12/06/2016 3:45 PM) Component Value Range Neuts% 37(L) 42-76 % Bands % 1 1-10 % Lymphocytes % 52(H) 15-44 % Monocyte % 9 4-13 % Eosinophils % 1 0-6 % Grans (Absolute) 1.2 1.2-7.3 10^3/uL Lymphocytes Absolute 1.6 0.6-3.5 10^3/uL Monos Absolute 0.3 0.2-0.9 10^3/uL Eosinophils Absolute Count 0.0 0.0-0.4 10^3/uL Basophils Absolute 0.0 0.0-0.1 10^3/uL RBC Morphology Normal Normal Platelet Estimate Decreased(A) Normal Narrative Testing performed at [facility], [address] [place] [address].Operations Executive Marco Hayes MD Mycoplasma pneumoniae antibody, IgM (12/06/2016 3:45 PM) Component Value Range Mycoplasma pneumoniae Negative Negative Narrative Testing performed at [facility], [address] [place] [address].Operations Executive Marco Hayes MD CBC auto differential (12/06/2016 3:45 PM)Only the most recent of2 resultswithin the time period is included. Component Value Range WBC 3.1 3.1-11.0 x10^3/uL RBC 4.62 3.60-5.17 x10^6/uL Hemoglobin 14.4 11.1-15.3 g/dL Hematocrit 45.0 33.7-46.0 % MCV 97.4 81.0-98.0 fL MCH 31.2 27.2-33.3 pg MCHC 32.0 31.7-35.6 g/dL RDW 12.7 10.8-14.6 % SD-RDW 44.6 37.0-50.4 fL Platelets 120(L) 147-370 x10^3/uL MPV 11.3 9.1-12.1 fL Specimen BLOOD - Arm, Left Narrative Testing performed at [facility], [facility] [place] [address].Operations Executive Marco Hayes MD Specimen: BLD XR CHEST 2 VIEWS PA AND LAT (12/06/2016 3:44 PM) [place] [address] DIAGNOSTIC IMAGING Name: Kristyn PaulLynda Ordering Phys: Lev Heart Age: 76Date of : 1939 Accession Number: [id number] Date of Service:12/06/2016 Gender: F EXAMINATION:X-rays of the chest HISTORY:Cough, fever of 99 - 103degrees Fahrenheit.Shortness of breath and fatique since Wednesday. TECHNIQUE:2 views COMPARISON:09/05/16 FINDINGS:Heart size is normal.No pneumothorax.Left pericardial fat.Post infectious calcified granulomas disease. No new pulmonary opacity.No pneumonia pulmonary edema. IMPRESSION: 1.No acute pulmonary infiltrates. THIS IS AN ELECTRONICALLY VERIFIED REPORT 12/06/2016 7:56 PM: Sb Garcia Sb Garcia:william Procedure Note Cornelius, External Ris In - Sun Dec 06, 2016 7:58 [place] [address] DIAGNOSTIC IMAGING Name: Humberto Kristyn A. Ordering Phys: Lev Heart Age: 76 Date of : 1940 Accession Number: [id number] Date of Service:12/06/2016 Gender: F EXAMINATION: X-rays of the chest HISTORY: Cough, fever of 99 - 103degrees Fahrenheit. Shortness of breath and fatique since Wednesday. TECHNIQUE: 2 views COMPARISON: 09/05/16 FINDINGS: Heart size is normal. No pneumothorax. Left pericardial fat. Post infectious calcified granulomas disease. No new pulmonary opacity. No pneumonia pulmonary edema. IMPRESSION: 1.No acute pulmonary infiltrates. THIS IS AN ELECTRONICALLY VERIFIED REPORT 12/06/2016 7:56 PM: Sb Garcia D.O. JS:william CT CHEST WO CONTRAST (11/18/2016 12:19 PM) [place] [address] [place] [address] DIAGNOSTIC IMAGING Name: Humberto Kristyn CadetLynda Ordering Phys: Zbigniew Cadet Jameslacey Age: 76Date of : 1939 Accession Number: [id number] Date of Service:11/18/2016 Gender: F EXAMINATION:CT chest, high-resolution protocol without contrast. HISTORY:Increasing shortness of breath over the last few months.Some productive cough as well. COMPARISON:Plain radiographs from 09/05/[address] chests. TECHNIQUE:High-resolution CT protocol of the chest was performed.Sagittal and coronal reformatted images were acquired and reviewed. FINDINGS:Atherosclerotic aorta without aneurysm in the chest or upper abdomen.The aorta is tortuous.Heart size is normal without pericardial effusion.There are calcified and noncalcified small lymph nodes in the chest without lymphadenopathy.Some calcifications are seen within the left lobe of the thyroid gland, incompletely evaluated.A limited evaluation of the upper abdomen is acutely normal.Partially visualized lumbar spine surgery posteriorly.Mild degenerative disc disease of the thoracic spine.No acute or destructive osseous lesions. Very tiny linear pulmonary nodule in the right upper lobe anteriorly measuring about 5mm on axial image 35.There is some atelectasis in the lingula as well as right middle lobe. Calcified granulomas are seen in the lungs.No focal consolidation, pleural effusion or pneumothorax.Punctate pulmonary nodule in the left upper lobe posteriorly on axial image 20.Tiny fissural nodule in the left upper lobe on axial image 18 posteriorly. Images were also acquired in inspiration and expiration.No evidence of interstitial lung disease is noted.No bronchiectasis or honeycombing is present.No significant air trapping on the expiratory phase. IMPRESSION: 1.No acute findings in the lungs. 2.A few small pulmonary nodules are present.Follow-up CT chest in 1 year is recommended. Automated exposure control was used as a dose optimization technique for this examination. THIS IS AN ELECTRONICALLY VERIFIED REPORT 11/18/2016 3:36 PM: Sb Lambert D.O. DW:hemal Procedure Note Cornelius, External Ris In - WedNov 18, 2016 3:40 [place] [address] DIAGNOSTIC IMAGING Name: Kristyn Paul Ordering Phys: Zbigniew Cadet Chbeir Age: 76 Date of : 1940 Accession Number: [id number] Date of Service:11/18/2016 Gender: F EXAMINATION: CT chest, high-resolution protocol without contrast. HISTORY: Increasing shortness of breath over the last few months. Some productive cough as well. COMPARISON: Plain radiographs from 09/05/[address] chests. TECHNIQUE: High-resolution CT protocol of the chest was performed. Sagittal and coronal reformatted images were acquired and reviewed. FINDINGS: Atherosclerotic aorta without aneurysm in the chest or upper abdomen. The aorta is tortuous. Heart size is normal without pericardial effusion. There are calcified and noncalcified small lymph nodes in the chest without lymphadenopathy. Some calcifications are seen within the left lobe of the thyroid gland, incompletely evaluated. A limited evaluation of the upper abdomen is acutely normal. Partially visualized lumbar spine surgery posteriorly. Mild degenerative disc disease of the thoracic spine. No acute or destructive osseous lesions. Very tiny linear pulmonary nodule in the right upper lobe anteriorly measuring about 5mm on axial image 35. There is some atelectasis in the lingula as well as right middle lobe. Calcified granulomas are seen in the lungs. No focal consolidation, pleural effusion or pneumothorax. Punctate pulmonary nodule in the left upper lobe posteriorly on axial image 20. Tiny fissural nodule in the left upper lobe on axial image 18 posteriorly. Images were also acquired in inspiration and expiration. No evidence of interstitial lung disease is noted. No bronchiectasis or honeycombing is present. No significant air trapping on the expiratory phase. IMPRESSION: 1. No acute findings in the lungs. 2. A few small pulmonary nodules are present. Follow-up CT chest in 1 year is recommended. Automated exposure control was used as a dose optimization technique for this examination. THIS IS AN ELECTRONICALLY VERIFIED REPORT 11/18/2016 3:36 PM: Sb Lamberti, D.O. DW:dw Pulmonary function test (11/12/2016)DEXA BONE DENSITY AXIAL (11/10/2016 12:56 PM ) Narrative DEXA BONE DENSITY AXIAL Based upon the left femoral neck T-score value of -3.0, the patient has osteoporosis. No prior studies are available.Individual bone values are available by clicking the Blue Hyperlink Icon. A FRAX score was not calculated. A FRAX score based upon a DXA study is not calculated unless all of the following criteria are met.The patient: a.is an untreated postmenopausal woman or a man age 50 or older. b.has low bone mass (T-score between -1.0 and -2.5). c.has no prior hip or vertebral fracture (clinical or morphometric). d.has an evaluable hip for DXA study. General Recommendations: 1.Consider an evaluation for secondary causes of osteoporosis in patients with low bone density. 2.All patients should be counseled on adequate intake of calcium (1200 mg/day), vitamin D (600-800 IU daily) and exercise. 3.The National Osteoporosis Foundation (NOF) guidelines recommend initiating pharmacological therapy, in addition to calcium, vitamin D and exercise, to reduce fracture risk when: a.T-score less than or equal to -2.5 after secondary causes excluded. b.T-score between -1.0 and -2.5 with secondary causes associated with high risk of fracture. c.10-year probability of hip fracture more than or equal to 3% (based on FRAX score). d.10-year probability of major osteoporosis related fracture more than or equal to 20% (based on FRAX score). Followup:People with diagnosed cases of osteoporosis or at high risk for fracture should have regular bone mineral density tests. For patients eligible for Medicare, routine testing is allowed once every 2 years.The testing frequency can be increased to one year for patients who have rapidly progressive disease or those who are receiving long-term steroid therapy. THIS IS AN ELECTRONICALLY SIGNED REPORT BY READING PHYSICIAN: Choco De La Garza D.O.2016-11-10 13:15:13 Procedure Note Cornelius, External Ris In - WedNov 10, 2016 1:15 PM BRIDGE DESIGN ENGINEER DEXA BONE DENSITY AXIAL Based upon the left femoral neck T-score value of -3.0, the patient has osteoporosis. No prior studies are available. Individual bone values are available by clicking the Blue Hyperlink Icon. A FRAX score was not calculated. A FRAX score based upon a DXA study is not calculated unless all of the following criteria are met. The patient: a. is an untreated postmenopausal woman or a man age 50 or older. b. has low bone mass (T-score between -1.0 and -2.5). c. has no prior hip or vertebral fracture (clinical or morphometric). d. has an evaluable hip for DXA study. General Recommendations: 1. Consider an evaluation for secondary causes of osteoporosis in patients with low bone density. 2. All patients should be counseled on adequate intake of calcium (1200 mg/day), vitamin D (600-800 IU daily) and exercise. 3. The National Osteoporosis Foundation (NOF) guidelines recommend initiating pharmacological therapy, in addition to calcium, vitamin D and exercise, to reduce fracture risk when: a. T-score less than or equal to -2.5 after secondary causes excluded. b. T-score between -1.0 and -2.5 with secondary causes associated with high risk of fracture. c. 10-year probability of hip fracture more than or equal to 3% (based on FRAX score). d. 10-year probability of major osteoporosis related fracture more than or equal to 20% (based on FRAX score). Followup: People with diagnosed cases of osteoporosis or at high risk for fracture should have regular bone mineral density tests. For patients eligible for Medicare, routine testing is allowed once every 2 years. The testing frequency can be increased to one year for patients who have rapidly progressive disease or those who are receiving long-term steroid therapy. THIS IS AN ELECTRONICALLY SIGNED REPORT BY READING PHYSICIAN: Choco De La Garza D.O. 2016-11-10 13:15:13 Urinalysis with microscopic (11/10/2016 12:22 PM) Component Value Range *WILFRID TYPE Clean Catch Color, Fluid DK YELLOW(A) Yellow Clarity, Fluid Clear Clear Specific [place] 1.026 1.001-1.035 pH 6.0 5.0-8.0 Leukocyte Esterase, UA 1+(A) Negative Nitrite Negative Negative Protein Negative Negative Glucose, Urinalysis Negative Negative Ketones, UA Negative Negative Urobilinogen Negative Negative Bilirubin Urine Negative Negative Blood Negative Negative WBC 3-6(A) 0-2 RBC 0-2 0-2 Epithelial Cells, Fluid 1+ <2+ Bacteria Rare None Specimen Cln Catch Narrative Testing performed at [facility], [address] [place] [address].Operations Executive Marco Hayes MD Specimen: UACUL Comprehensive metabolic panel (11/10/2016 12:22 PM) Component Value Range Glucose 111(H)Comment: 60-100 mg/dL Fasting Plasma Glucose (FPG)<100 MG/DL Impaired Fasting Glucose (IFG) 100-125 MG/DL Provisional Diagnosis of Diabetes Mellitus > rx=443 MG/DL (Diagnosis Must Be Confirmed) BUN, Blood 16 10-20 mg/dL Creatinine 0.8 0.6-1.2 mg/dL Glomerular Filtration Rate 73(L) >80 mL/min/1.73mm2 Estimate Glomerlular Filtration Rate 84Comment:The estimated GFR has >80 mL/min/ 1.73mm2 Estimate- not been validated for women or patients with serious comorbid conditions, or with extremes of body size, muscle mass, or nutritional status. Calcium 9.4 8.4-10.2 mg/dL Sodium 141 136-145 mmol/L Potassium 4.0 3.5-4.6 mmol/L Chloride 103 99-111 mmol/L CO2 31.5 21.0-32.0 mmol/L Albumin 3.3(L) 3.5-5.0 g/dL Total Protein 7.0 6.1-8.0 g/dL Bilirubin Total 0.5 0.2-1.2 mg/dL Alkaline Phosphatase 59 40-150 U/L AST 16 5-34 U/L ALT 14 0-55 u/L Narrative Testing performed at [facility], [address] [place] [address].Operations Executive Marco Hayes MD SUREPATH PAP AND HPV MRNA E6/E7 (10/06/2016 1:41 PM) Component Value Range Clinical Information: Routine exam Postmenopausal Date LMP PM Previuos PAP UNKNOWN Prev BX NO Surepath Source Cervix Specimen Adequacy SATISFACTORY FOR EVALUATION Interp/Result Negative for intraepithelial lesion or malignancy. Atrophic pattern; predominantly parabasal cells Landscape Laborer MDG, CT(ASCP) CT screening location: [address] [place] [address] HPV mRNA E6/E7 Not DetectedComment: NOT DETECTED This test was performed using the APTIMA HPV Assay ([employer] This assay detects E6/E7 viral messenger RNA (mRNA) from 14 high-risk HPV types (16,18,31,33,35,39,45,51,52,56,58,59,66,68). The analytical performance characteristics of this assay, when used to test SurePath specimens, have been determined by [employer] Specimen Genital - Cervix Narrative [facility] at[facility], [address] [place] [address], [phone], Operations Executive: TOLU MATT MD Specimen: Genital MM DIGITAL BILATERAL SCREENING MAMMOGRAM (10/06/2016 11:03 AM) Narrative 10/06/2016 Clinical History: Patient is 76 years old and is seen for screening. Digital technique utilized. 3-D tomosynthesis and synthesized 2-D images were acquired. DIGITAL MAMMOGRAM: R2 CAD utilized. The following views were performed: Bilateral craniocaudal with tomosynthesis; bilateral mediolateral oblique with tomosynthesis. There are scattered fibroglandular densities. There are no suspicious findings in either breast.Benign finding(s) are noted. There has been no significant interval change. IMPRESSION: There is no mammographic evidence of malignancy. A routine follow-up mammogram in 1 year is recommended or according to the [employer] recommendations. BIRADS Assessment 2: Benign finding. Lay Letter #1. THIS IS AN ELECTRONICALLY SIGNED REPORT READING PHYSICIAN: Lj Hutchinson 10/07/2016 at 02:04 AM Procedure Note Cornelius, External Ris In - WedOct 07, 2016 2:02 AM BRIDGE DESIGN ENGINEER 10/06/2016 Clinical History: Patient is 76 years old and is seen for screening. Digital technique utilized. 3-D tomosynthesis and synthesized 2-D images were acquired. DIGITAL MAMMOGRAM: R2 CAD utilized. The following views were performed: Bilateral craniocaudal with tomosynthesis; bilateral mediolateral oblique with tomosynthesis. There are scattered fibroglandular densities. There are no suspicious findings in either breast. Benign finding(s) are noted. There has been no significant interval change.
--- OUTSIDE RECORDS SUMMARY | 2016-12-31 16:49 | XMS REPORT | Continuity of Care Document ---
:1940 Author Organization [facility] ([facility]) Address [address] [place] [address] Phone [phone] Care Team Providers Name Role [facility] Primary Care Provider [phone] Source Comments This disclosure is being made pursuant to the Care Everywhere program, applicable federal and state laws, and may not contain all informaitonavailable regarding this patient.[facility] ([facility]) Active Allergies and Adverse Reactions Allergen Noted Date Severity Reactions Comments Albuterol OTHER "muscle jerking" Gold Salts Urticaria (Hives) Current Medications Prescription Sig. Disp. Refills Start Date End Date Status methylPREDNISolone take 1 Tab by 21 Tab 0 06/12/2009 Active (MEDROL, FERNANDO,) 4 mg mouth. Day 1, take tablet 6 tabs. Day 2, take 5 tabs. Day 3, take 4 tabs. Day 4, take 3 tabs. Day 5, take 2 tabs. Day 6, take 1 tab., Indications: Neuropathic pain. Naproxen Sodium 220 mg take 660 mg by Active Tab mouth 2 times daily. HYDROcodone-acetaminophen take 1 Tab by Active (LORTAB) 5-500 mg per mouth every 4 tablet hours as needed for Pain. cyclobenzaprine take 10 mg by Active (FLEXERIL) 10 mg tablet mouth 3 times daily as needed for Muscle spasms. LANSOPRAZOLE (PREVACID take by mouth 2 Active PO) times daily. Active Problems Problem Noted Date Chest pain, unspecified 12/27/2008 Rheumatoid arthritis(714.0) 05/26/2006 Social History Tobacco Use Types Packs/Day Years Used Date Never Assessed Last Filed Vital Signs Vital Sign Reading Time Taken Blood Pressure 151/78 06/12/2009 1:29 PM CDT Pulse 79 06/12/2009 1:29 PM CDT Temperature 36.7 C (98.06 F) 12/28/2008 4:00 PM [employer] Respiratory Rate 18 12/28/2008 4:00 PM [employer] Height 1.683 m (5' 6.26") 06/12/2009 1:29 PM CDT Weight 114.2 kg (251 lb 12.3 oz) 06/12/2009 1:29 PM CDT Body Mass Index 40.32 06/12/2009 1:29 PM CDT Oxygen Saturation - - Plan of Care Health Maintenance Due Date Last Done Comments Hepatitis B Vaccine (1 of 3 - Primary Series) 1940 Tdap Vaccine 1952 Td Vaccine 1959 Mammogram 1981 Colonoscopy 1991 Zoster Vaccine 2001 Osteoporosis Screening (DXA Bone Density) 2006 Pneumococcal Vaccine (1 of 2 - PCV13) 2006 Lipid Disorder Screening 12/28/2013 12/28/2008 Influenza Vaccine: Seasonal (#1) 06/08/2016 Results from Last 3 Months Not on file
[2016-12-31] MEDS ORDERED: ENOXAPARIN SODIUM 40 MG/0.4 ML SYRG SC SCH (17:00)
--- NOTE | 2016-12-31 17:11 | HP ---
Chief Complaint - Chief Complaint Date of Service: 12/31/16 Time of Service: 16:00 Chief Complaint: Chest pain, SOB History of Present Illness: Patient presented to my office with complaints of shortness of breath and chest pain with exertion. She states the chest pain is located substernal and goes across her upper chest and under her armpits and there is also radiation of pain to her back between her shoulder blades and radiation to her jaw. The pain comes with any exertion such as getting dressed, showering, walking across a room. The pain usually lasts around 20 minutes and will completely resolve after she sits down, gets her breath and rests for a bit. She admits that she has a history of blood clots in her legs but has not had a blood clot for a few years. Her daughter from a PE in her 30s. - Patient's Past Medical History Patient History - Medical: Rheumatoid Arthritis, UTI'S Patient History - Cardiac/Respiratory: COPD, Deep Vein Thrombosis, Hypertension , Pneumonia Patient History - Cancer: No Hx of Cancer Patient History - Surgical Procedures: Appendectomy, Other Patient History - Other: Immunosuppresive Tx >3mo - Family History Father Family History - Medical: Family History - Cardiac/Respiratory: Aneurysm, Coronary Heart Disease Children Family History - Medical: Family History - Cardiac/Respiratory: Pulmonary Embolism - Social History Living Situations: spouse Psych History: No pertinent hx Smoking Status: Never smoker Have you smoked in the past 12 months: No Alcohol Use: none Drug Use: none - Immunizations Immunizations Up to Date: Yes Hx Pneumococcal Vaccination: Yes History of Influenza Vaccine: No Review Of Systems (GEN) - Review of Systems Generalized/Overall Review: Absent: Chills, Fever EENTM: Present: No Symptoms Reported Respiratory: Present: Cough, Shortness of Breath, Orthopnea, Wheezing Cardiac: Present: Chest Pain, Edema Abdominal: Present: No Symptoms Reported Genitourinary: Present: No Symptoms Reported Musculoskeletal: Present: No Symptoms Reported Neurological: Present: No Symptoms Reported Skin: Present: No Symptoms Reported Endocrine: Present: No Symptoms Reported Misc: All systems neg except as marked Immunizations: IMMUNIZATION HX Immunizations Up to Date Yes History of Influenza Vaccine No Hx Pneumococcal Vaccination Yes Allergies/Adverse Reactions: Allergies Allergy/AdvReac Type Severity Reaction Status Date / Time Gold Salts Allergy Intermediate Hives Verified 12/11/16 16:56 Iodinated Contrast Media - Allergy Intermediate Swelling Verified 12/11/16 21:20 IV Dye of Face Home Medications: HOME MEDICATIONS RX: Leflunomide 20 mg PO DAILY 12/11/16 [Last Taken 12/11/16] RX: Losartan Potassium [Cozaar] 50 mg PO BID 12/11/16 [Last Taken 12/11/16] RX: Metoprolol Tartrate [Lopressor] 100 mg PO BID 12/11/16 [Last Taken 12/11/16] RX: Sulfasalazine [Sulfazine] 1,000 mg PO BID 12/11/16 [Last Taken 12/11/16] RX: amLODIPine BESYLATE [Norvasc] 5 mg PO DAILY 12/11/16 [Last Taken 12/11/16] Levofloxacin [Levaquin] 750 mg PO DAILY #4 tablet 12/14/16 [Last Taken Unknown] RX: Budesonide/Formoterol Fumarate [Symbicort 160-4.5 Mcg Inhaler] 2 puff IH BID #3 hfa.aer.ad 12/14/16 [Last Taken Unknown] RX: Lactobacillus Acidophilus [Bacid] 1 cap PO DAILY #4 btl 12/14/16 [Last Taken Unknown] RX: Levalbuterol HCl [Xopenex] 1.25 mg IH Q6HRT 7 Days 12/14/16 [Last Taken Unknown] RX: guaiFENesin [Mucinex] 600 mg PO BID 7 Days 12/14/16 [Last Taken Unknown] RX: predniSONE [Prednisone] 40 mg PO DAILY #5 tablet 12/14/16 [Last Taken Unknown] Exam - Exam Vital Signs: Vital Signs - Last Taken Temp 36.3 C L 12/14/16 10:40 Pulse Resp BP 111/63 12/14/16 10:40 Pulse Ox Constitutional: Present: Alert, Oriented x3, Cooperative, Well developed, Mild distress - Mild respiratory distress which worsens with minimal activity, Obese ENT Exam: Present: hearing grossly normal, moist mucous membranes Neck: Present: supple, normal inspection Respiratory: Present: lungs clear, respiratory distress, decreased breath sounds. Absent: crackles, rales, rhonchi, stridor, wheezing Cardiovascular/Chest: Present: regular rate, rhythm, edema Abdomen: Present: Normal bowel sounds, soft, nontender, nondistended, obese Extremity: Present: normal inspection, pedal edema Skin Exam: Present: normal color, warm/dry Neurologic: Present: no motor/sensory deficits, alert, normal mood/affect, oriented x 3 Appearance: Present: appropriate appearance, appropriate insight, neat, no memory impairment Eye contact: Present: cooperative, good eye contact, normal speech Thoughts: Present: normal thought pattern, no apparent hallucination Assessment/Plan - Narrative Narrative: Concern for ACS vs. PE. Admit to observation. Monitor on telemetry. Given history of multiple blood clots, check BMP STAT and proceed with CT chest with contrast. Trend cardiac enzymes overnight. If CT chest and cardiac enzymes are unremarkable, patient will have a pharmacologic stress test in the AM. - Assessment/Plan (1) Chest pain Problem: Acute (2) Shortness of breath Problem: Acute (3) Exertional chest pain Problem: Acute
[2016-12-31] MEDS ORDERED: NITROGLYCERIN 0.4 MG/TAB BTL SL PRN (17:15)
[2016-12-31] MEDS ORDERED: MORPHINE SULFATE 4 MG/ML SYRG IV PRN (17:15)
[2016-12-31] MEDS ORDERED: ENOXAPARIN SODIUM 80 MG/0.8 ML DISP.SYRIN SC ONE (17:40)
[2016-12-31 18:07] LABS: Anion Gap 12.9 mmol/L (6.8-13.8); BUN/Creatinine Ratio 17.2 (9.0-21.6); Blood Urea Nitrogen 15 mg/dL (3-23); CK Total * 38 U/L (0-259); Calcium * 8.9 mg/dL (7.9-10.9); Carbon Dioxide 28.8 mmol/L (24-32.6); Chloride 106 mmol/L (97-106); Estimated Creat Clear 52.3; Glucose * 97 mg/dL (70-110); Potassium 3.7 mmol/L (3.4-4.6); Sodium 144 mmol/L (132-142); Troponin I Less than 0.017 ng/ml (0.00-0.10)
[2016-12-31] MEDS ORDERED: predniSONE 20 MG TABLET PO ONE (20:00)
[2016-12-31 22:37] LABS: CK Total * 38 U/L (0-259); Troponin I Less than 0.017 ng/ml (0.00-0.10)
[2017-01-01] MEDS ORDERED: ENOXAPARIN SODIUM SC ONE ×2 (05:40)
[2017-01-01] MEDS ORDERED: ENOXAPARIN SODIUM 100 MG/ML SYRG SC ONE (05:40)
[2017-01-01 06:43] LABS: BUN/Creatinine Ratio 16.4 (9.0-21.6); Blood Urea Nitrogen 12 mg/dL (3-23); Estimated Creat Clear 62.7; Glucose * 180 mg/dL (70-110); Sodium 141 mmol/L (132-142)
[2017-01-01 06:44] LABS: Anion Gap 13.5 mmol/L (6.8-13.8); CK Total * 33 U/L (0-259); Calcium * 8.8 mg/dL (7.9-10.9); Carbon Dioxide 25.9 mmol/L (24-32.6); Chloride 106 mmol/L (97-106); Potassium 4.4 mmol/L (3.4-4.6); Troponin I Less than 0.017 ng/ml (0.00-0.10)
[2017-01-01] MEDS ORDERED: diphenhydrAMINE HCL 50 MG CAPSULE PO ONE (07:00)
[2017-01-01] MEDS ORDERED: predniSONE 20 MG TABLET PO ONE (07:00)
[2017-01-01 10:41] VITALS: BP 150/86
[2017-01-01] MEDS ORDERED: RIVAROXABAN 15 MG TABLET PO STA (12:48)
--- NOTE | 2017-01-01 12:48 | DS ---
(1) Pulmonary embolism Problem: Acute Qualifiers: Chronicity: acute Description of Stay: ADMISSION DATE: 12.31.2016 DISCHARGE DATE: 01.01.2017 ADMISSION HPI: Patient presented to my office with complaints of shortness of breath and chest pain with exertion. She states the chest pain is located substernal and goes across her upper chest and under her armpits and there is also radiation of pain to her back between her shoulder blades and radiation to her jaw. The pain comes with any exertion such as getting dressed, showering, walking across a room. The pain usually lasts around 20 minutes and will completely resolve after she sits down, gets her breath and rests for a bit. She admits that she has a history of blood clots in her legs but has not had a blood clot for a few years. Her daughter from a PE in her 30s. HOSPITAL COURSE: Patient admitted after being seen evaluated in the clinic. Given the patients presenting symptoms, I was concerned for possible PE vs. ACS. Patient has an allergy to IV contrast, so she had to have a 12 hour pre-medication process prior to her CT being able to be completed. Thus, given my high concern for PE, she was started on therapeutic Lovenox with 1mg/kg SQ BID on admission while awaiting completion of her CT scan with contrast PE protocol to be completed the following morning. She was monitored on telemetry overnight and her cardiac enzymes were trended and both were unremarkable. CT scan revealed bilateral pulmonary emboli with significant clot burden. No saddle embolus. I discussed the risks and benefits of Coumadin vs. NOACs and the patient made the decision to proceed with treatment with Xarelto. 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 FOLLOW-UP APPOINTMENTS: PCP within 1-2 weeks NEW OR CHANGED MEDICATIONS: Xarelto 15mg PO BID X 21 days and then transition to Xarelto 20mg PO daily DISCONTINUED MEDICATIONS: None Procedures Performed: none Discharge Disposition: Home self care Disposition: Home self-care Condition: Stable Discharge Activity: Activity as tolerated Discharge Diet: Resume usual diet Additional Patient Instructions (free text): FOLLOW-UP WITH PCP, DR. GUTIERRES, WITHIN 1-2 WEEKS on 01-14-17 @ 1:45pm. Prescriptions (Any new or edited meds): Rivaroxaban [Xarelto] 15 mg PO BID #42 tablet Rivaroxaban [Xarelto] 20 mg PO DAILY #30 tablet Complete Home Medications List: Complete Home Medication List: Leflunomide 20 mg PO DAILY 12/11/16 Losartan Potassium [Cozaar] 50 mg PO BID 12/11/16 Metoprolol Tartrate [Lopressor] 100 mg PO BID 12/11/16 Sulfasalazine [Sulfazine] 500 mg PO BID 12/11/16 amLODIPine BESYLATE [Norvasc] 5 mg PO DAILY 12/11/16 Budesonide/Formoterol Fumarate [Symbicort 160-4.5 Mcg Inhaler] 2 puff IH BID #3 hfa.aer.ad 12/14/16 Lactobacillus Acidophilus [Bacid] 1 cap PO DAILY #4 btl 12/14/16 Incruse Ellipta 62.5 mcg INH DAILY 12/31/16 Rivaroxaban [Xarelto] 15 mg PO BID #42 tablet 01/01/17 Rivaroxaban [Xarelto] 20 mg PO DAILY #30 tablet 01/01/17
== END 2017-01-01 14:07 | disposition home or self-care (01) ==
LOC: MS 16:43
PROVIDERS: ADMIT Internal Medicine; ATTEND Internal Medicine
DX: M06.9 Rheumatoid arthritis, unspecified (principal); J44.9 Chronic obstructive pulmonary disease, unspecified; I10 Essential (primary) hypertension; Z86.718 Personal history of other venous thrombosis and embolism
CPT/HCPCS: 36415; 71275; 80048; 82550; 82553; 84484; 93005; 96372; G0378; G0379

== ENCOUNTER 2017-05-17 11:00 | Observation (INO) | payer MEDICARE, OTHER ==
[2017-05-17] MEDS ORDERED: NORMAL SALINE 1,000 ML IV ONE (11:20)
[2017-05-17] MEDS ORDERED: METHYLPREDNISOLONE SOD SUCC/PF 40 MG/ML VIAL IV ONE (11:20)
[2017-05-17] MEDS ORDERED: ALBUTEROL SULFATE 2.5 MG/3 ML VIAL.NEB IH ONE (11:22)
--- OUTSIDE RECORDS SUMMARY | 2017-05-17 11:26 | XMS REPORT | Continuity of Care Document ---
:1940 Author Organization [facility] [place] [address] Care Team Providers Name Role Phone Amelie Cerna Primary Care Provider [phone] Source Comments This disclosure is being made pursuant to the Pay4later program and maynot contain all information available regarding this patient.[facility] Active Allergies and Adverse Reactions Allergen Noted Date Severity Reactions Comments Gold-Containing Drug Products 08/06/2014 High Hives Lisinopril 08/06/2014 Cough Ridaura 08/06/2014 High Hives Gold Salts Current Medications Be aware that medications may not be up to date as of this document. Alwaysverify current medications with the patient. Prescription Sig. Disp. Refills Start End Status Date Date traMADol (ULTRAM) 50 MG Take 1 tablet by 90 tablet 5 12/18/19 Active tablet mouth 3 (three) 16 times daily. [facility] [phone] leflunomide (ARAVA) 20 Take 1 tablet by 30 tablet 11 08/25/20 Active MG tablet mouth daily. 16 acetaminophen (TYLENOL) Take 500 mg by Active 500 MG tablet mouth every 6 (six) hours as needed for Pain. aspirin 325 MG tablet Take 325 mg by Active mouth daily. oxybutynin Take 1 tablet by 10 tablet 0 12/03/19 Active (DITROPAN-XL) 10 MG 24 mouth daily. 17 hr tablet albuterol (PROAIR Inhale 2 puffs 1 Inhaler 3 12/23/19 Active HFA;PROVENTIL into the lungs 17 HFA;VENTOLIN HFA) 108 every 4 (four) (90 Base) MCG/ACT hours as needed inhaler for Wheezing or Shortness of Breath. albuterol (ACCUNEB) Take 3 mLs by 60 mL 3 12/23/19 Active 0.63 MG/3ML nebulizer nebulization 17 solution every 4 (four) hours as needed for Wheezing or Shortness of Breath. sulfaSALAzine TAKE 2 TABLETS 360 tablet 12 12/24/19 Active (AZULFIDINE) 500 MG BY MOUTH 2 TIMES 17 tablet A DAY losartan (COZAAR) 50 MG TAKE 1 TABLET BY 180 tablet 3 12/29/19 Active tablet MOUTH 2 TIMES A 17 DAY rivaroxaban (XARELTO) Take 20 mg by Active 15 MG TABS tablet mouth daily. SYMBICORT 160-4.5 2 puffs 2 (two) 4 12/14/19 Active MCG/ACT inhaler times daily. 17 leflunomide (ARAVA) 10 Take 10 mg by 01/20/20 Active MG tablet mouth daily. 17 XARELTO 20 MG TABS 01/20/20 Active tablet 17 hydrochlorothiazide 02/24/20 Active (HYDRODIURIL) 25 MG 17 tablet vitamin D, 1 capsule weekly 12 capsule 3 02/26/20 Active Ergocalciferol, 36559 x 12 weeks then 17 units capsule evry other week metoprolol succinate TAKE 1 TABLET BY 180 tablet 4 03/17/20 Active (TOPROL-XL) 100 MG 24 MOUTH 2 TIMES A 17 hr tablet DAY Umeclidinium-Vilanterol Take 1 puff by 1 each 04/26/20 Active (ANORO ELLIPTA) 62.5-25 mouth daily. 17 017 MCG/INH inhalation Umeclidinium-Vilanterol Take 1 puff by Discontinued (ANORO ELLIPTA) 62.5-25 mouth daily. 017 MCG/INH inhalation Umeclidinium-Vilanterol Take 1 puff by 1 each 11 04/26/20 Discontinued (ANORO ELLIPTA) 62.5-25 mouth daily. 17 017 MCG/INH inhalation Active Problems Problem Noted Date Pulmonary embolism (HCC) 01/31/2017 Osteomalacia 01/31/2017 Acute pulmonary embolism (HCC) 01/18/2017 History of pulmonary embolism 01/13/2017 SOB (shortness of breath) 11/12/2016 Chronic obstructive pulmonary disease (HCC) 11/10/2016 Chest pain 09/09/2016 Dyspnea 09/09/2016 Obesity 09/09/2016 Long-term use of immunosuppressant medication 08/25/2016 Seropositive rheumatoid arthritis (HCC) 06/17/2016 Rheumatoid arthritis (HCC) 06/19/2015 Lumbago 06/19/2015 Encounter for long-term (current) use of other medications 06/19/2015 Muscle cramps 06/19/2015 Most Recent Encounters Date Type Specialty Providers Description 04/26/2017 Office Visit Pulmonology Zbigniew Wilkins MD Chronic obstructive pulmonary disease, unspecified COPD type (HCC) (Primary Dx) 04/26/2017 Refill Pulmonology Temitope Ortiz LPN 03/17/2017 Refill Rheumatology Jj Pruitt MD 02/24/2017 Office Visit Oncology Trey Figueroa MD Pulmonary embolism , other (HCC) (Primary Dx); Other acute pulmonary embolism (HCC); Rheumatoid arthritis involving shoulder, unspecified laterality, unspecified rheumatoid factor presence (HCC); Osteomalacia; History of pulmonary embolism Immunizations Name Dates Previously Given Next Due Influenza, Inactivated, Trivalent, High Dose, 66Y and 08/17/2016 Older Social History Tobacco Use Types Packs/Day Years Used Date Never Smoker Smokeless Tobacco: Never Used Tobacco Cessation:Counseling Given: No Comments: Alcohol Use Drinks/Week oz/Week Comments No Last Filed Vital Signs Vital Sign Reading Time Taken Blood Pressure 128/64 04/26/2017 1:18 PM CDT Pulse 76 04/26/2017 1:18 PM CDT Temperature 36.3 C (97.3 F) 04/26/2017 1:18 PM CDT Respiratory Rate 18 04/26/2017 1:18 PM CDT Height 1.651 m (5' 5") 04/26/2017 1:18 PM CDT Weight 117.482 kg (259 lb) 04/26/2017 1:18 PM CDT Body Mass Index 43.1 04/26/2017 1:18 PM CDT Oxygen Saturation 94% 04/26/2017 1:18 PM CDT Plan of Care Date Type Specialty Providers Description 06/30/2017 Appointment Rheumatology Jj Pruitt MD [address] [place] [address] [address] [place] [address] [phone] (Fax) 07/27/2017 Appointment Oncology 07/27/2017 Appointment Oncology Trey Figueroa MD [address] [place] [id number] [phone] (Fax) 10/08/2017 Appointment Obstetrics and Gynecology Nica Cerna MD [address] [place] [address] [phone] (Fax) 10/25/2017 Appointment Pulmonology Zbigniew Wilkins MD [address] [place] [address] [phone] (Fax) 11/22/2017 Appointment Radiology Health Maintenance Due Date Last Done Comments Tetanus/Pertussis (1 - Tdap) 1960 Zoster Vaccine 60+ 2001 Influenza Immunization (#1) 2017 08/17/2016 Well Adult Visit 10/06/2017 10/06/2016 Pneumococcal Low/Medium Risk 65+ 04/26/2018 Postponed from 2006 (1 of 2 - PCV13) (Patient Declined) Bone Density Completed 11/10/2016 Results from Last 3 Months Not on file Insurance Payer Benefit Plan / Subscriber ID Type Phone Address Group MEDICARE MEDICARE A AND B [id number] [phone] [address] [place] [address] [employer] [id number] [phone] [employer] [place] [id number] Home: [id number] [phone] [place] [id number]
--- NOTE | 2017-05-17 11:37 | ERNOTE ---
Date of Service: 05/17/17 Time Seen by Provider: 05/17/17 11:09 Stated Complaint: HYPOTENSION, SORE THROAT Presenting Symptoms:: cough, sore throat, fever Source: patient Exam Limitations: no limitations Immunizations: IMMUNIZATION HX Immunizations Up to Date Yes History of Influenza Vaccine No Hx Pneumococcal Vaccination Yes Allergies/Adverse Reactions: Allergies Gold Salts Allergy (Intermediate, Verified 05/17/17 11:09) Hives Iodinated Contrast Media - Oral and [Iodinated Contrast Media - IV Dye] Allergy (Intermediate, Verified 05/17/17 11:09) Swelling of Face Home Medications: HOME MEDICATIONS Leflunomide 20 mg PO DAILY 12/11/16 [Last Taken 12/31/16 09:00 20] Losartan Potassium [Cozaar] 50 mg PO BID 12/11/16 [Last Taken 12/31/16 09:00 50] Metoprolol Tartrate [Lopressor] 100 mg PO BID 12/11/16 [Last Taken 12/31/16 09: 00 100] sulfaSALAzine [Sulfazine] 500 mg PO BID 12/11/16 [Last Taken 12/31/16 09:00 500] Budesonide/Formoterol Fumarate [Symbicort 160-4.5 Mcg Inhaler] 2 puff IH BID #3 hfa.aer.ad 12/14/16 [Last Taken 12/31/16 09:00] Rivaroxaban [Xarelto] 15 mg PO BID #42 tablet 01/01/17 [Last Taken Unknown] Rivaroxaban [Xarelto] 20 mg PO DAILY #30 tablet 01/01/17 [Last Taken Unknown] Hydrochlorothiazide [Hydrodiuril] 25 mg PO DAILY 05/17/17 [Last Taken Unknown] Umeclidinium Brm/Vilanterol Tr [Anoro Ellipta 62.5-25 Mcg INH] 1 each IH DAILY 05/17/17 [Last Taken Unknown] - History of Present Ilness Narrative: Pt. comes in with c/o sore throat, fever, dyspnea, weakness, malaise, hypotension, and fatigue for five days. Pt. states that she developed the sore throat five days ago then became very short of breath since. Pt. denies any CP , palpitations, edema, headache, recent injury but does state that she has been treated for a large PE recently as well. Pt. has had these symptoms recently intermittently as well and has gotten IVF as an outpatient. Review of Systems - Review of Systems Constitutional: Present: recent illness, fever, chills, weakness, fatigue, malaise, decreased activity level EYE: Present: no symptoms reported ENT: Present: nose congestion, nasal drainage, sore throat, throat swelling Respiratory: Present: shortness of breath, cough, orthopnea. Absent: wheezing Cardiology: Present: no symptoms reported. Absent: chest pain, palpitations, edema Gastrointestinal/Abdominal: Present: no symptoms reported. Absent: nausea, vomiting, diarrhea, abdominal pain Genitourinary: Present: no symptoms reported. Absent: frequency, pain, dysuria , decreased urinary output Musculoskeletal: Present: no symptoms reported. Absent: back pain, joint pain Skin: Present: no symptoms reported Neurological: Present: dizziness/light-headedness. Absent: headache, numbness, tingling All Other Systems: All systems neg except as marked - Patient's Past Medical History Patient History - Medical: Rheumatoid Arthritis, UTI'S Patient History - Cardiac/Respiratory: COPD, Deep Vein Thrombosis, Hypertension , Pneumonia Patient History - Cancer: No Hx of Cancer Patient History - Surgical Procedures: Appendectomy, Other Patient History - Other: Immunosuppresive Tx >3mo - Family History Father Family History - Medical: Family History - Cardiac/Respiratory: Aneurysm, Coronary Heart Disease Children Family History - Medical: Family History - Cardiac/Respiratory: Pulmonary Embolism - Social History Living Situations: spouse Psych History: No pertinent hx Alcohol Use: none Drug Use: none - Immunizations Immunizations Up to Date: Yes Hx Pneumococcal Vaccination: Yes History of Influenza Vaccine: No Physical Exam - Physical Exam General Appearance: Present: wd/wn, alert, no apparent distress Eye Exam: Normal inspection: bilateral, PERRL: bilateral, EOMI: bilateral Ears, Nose, Throat: Present: nasal congestion, sinus pain/drainage, pharyngeal erythema, pharyngeal swelling, tonsillar exudate - white, tonsillar swelling, other - no tonsillar abscess noted but tonsillar swelling is larger on R side Neck: Present: full range of motion, lymphadenopathy (R), lymphadenopathy (L), tender lateral - anterior. Absent: tender posterior midline Respiratory: Present: no respiratory distress, no accessory muscle use, decreased breath sounds, crackles - upper lobe coarse, wheezing - upper lobes Cardiovascular/Chest: Present: no murmur, normal peripheral pulses, tachycardia Gastrointestinal/Abdominal: Present: normal bowel sounds, nontender, no organomegaly, distended - pt. states is normal Back Exam: Present: normal inspection, normal range of motion, no CVA tenderness , no vertebral tenderness Extremity Exam: Present: normal inspection, non-tender, normal range of motion, no edema Neurological Exam: Present: alert, oriented, normal mood/affect, no motor/ sensory deficits, solutions specialist II-XII nml as tested, normal cerebellar test Skin Exam: Present: warm/dry, pallor ED Progress - Date and Time Seen: Date and Time: 05/17/17 14:[address] pal khan and he agrees to admit pt. for observation - Vital Signs Patient's Vital Signs:: I have reviewed the patient's vital signs. Vital Signs: Vital Signs 05/17/17 11:05 Temperature 36.8 C Pulse Rate 91 Respiratory 14 Rate Blood Pressure 120/58 O2 Sat by Pulse 94 Oximetry - EKG EKG: NSR, unchanged from, other - anterior ischemia not acute EKG read: Reviewed by me EKG Comments: interp. by Dr Green - X-Ray X-Ray #1 X-Ray: chest Interpretation: Reviewed by me X-ray Comments: no acute CP process - Progress/Reassessment Chief Complaint: Upper Respiratory Symptoms Departure - Departure Clinical Impression: Shortness of breath, Strep pharyngitis with scarlet fever, Lactic acidosis UTI (urinary tract infection) Qualifiers: Urinary tract infection type: acute cystitis Hematuria presence: without hematuria Qualified Code(s): N30.00 - Acute cystitis without hematuria Hypotension Qualifiers: Hypotension type: unspecified hypotension type Qualified Code(s): I95.9 - Hypotension, unspecified Disposition: [facility] Condition: Serious Referrals: Amelie Cerna DO [Primary Care Provider] -
[2017-05-17 11:44] LABS: Hematocrit 36.2 % (37.0-47.0); Hemoglobin 12.2 gm/dL (12.5-16.0); Mean Cell Volume 95.5 fl (78-100); Mean Corpuscular Hemoglobin 32.2 pg (27-31); Mean Corpuscular Hgb Conc 33.7 g/dl (32-36); Mean Platelet Volume 10.8 fl (6.0-9.5); Neutrophil # 8.1 K/mm3 (1.3-6.0); Neutrophil % 77.8 % (42-75.0); Platelet Count 172 K/mm3 (150-450); Red Blood Count 3.79 M/mm3 (4.2-5.4); White Blood Count 10.4 K/mm3 (4.0-10.5)
[2017-05-17] MEDS ORDERED: ALBUTEROL SULFATE 2.5 MG/0.5 ML VIAL.NEB IH ONE (11:50)
[2017-05-17 11:54] LABS: ALT 14 U/L (19-67); AST 14 U/L (0-48); Albumin * 3.2 gm/dl (3.4-5.0); Alkaline Phosphatase * 71 U/L (50-170); Anion Gap 11.5 mmol/L (6.8-13.8); BUN/Creatinine Ratio 10.6 (9.0-21.6); Bilirubin, Total 0.6 mg/dL (0.0-1.1); Blood Urea Nitrogen 14 mg/dL (3-23); Ca. Corrected For Albumin 9.2 mg/dL (8.4-10.2); Calcium * 8.9 mg/dL (7.9-10.9); Carbon Dioxide 29.6 mmol/L (24-32.6); Chloride 98 mmol/L (97-106); Glucose * 147 mg/dL (70-110); Potassium 3.1 mmol/L (3.4-4.6); Sodium 136 mmol/L (132-142); Total Protein 7.4 gm/dL (6.2-8.2); Troponin I Less than 0.017 ng/ml (0.00-0.10)
[2017-05-17] MEDS ORDERED: METHYLPREDNISOLONE SOD SUCC/PF 40 MG/ML VIAL ONE (12:06)
[2017-05-17] MEDS: NORMAL SALINE 1,000 ML IV PRN ×4 (13:17→21:15)
[2017-05-17 13:43] LABS: Urine Bilirubin 1 mg/dl (NEGATIVE); Urine Blood Negative /ul (NEGATIVE); Urine Ketone Negative (NEGATIVE); Urine Nitrite Negative (NEGATIVE); Urine Protein 30 mg/dL (NEGATIVE); Urine Urobilinogen Normal (NORMAL)
[2017-05-17 13:51] LABS: Urine Appearance Clear; Urine Bacteria 1+; Urine Color Yellow; Urine RBC None Seen /hpf (0-5)
--- OUTSIDE RECORDS SUMMARY | 2017-05-17 15:02 | XMS REPORT | Continuity of Care Document ---
:1940 Author Organization [facility] [place] [address] Care Team Providers Name Role Phone Amelie Cerna Primary Care Provider [phone] Source Comments This disclosure is being made pursuant to the [employer] program and maynot contain all information available regarding this patient.[facility] Active Allergies and Adverse Reactions Allergen Noted [...] mouth 3 (three) 16 times daily. [facility] [phone] leflunomide (ARAVA) 20 Take 1 tablet by [...] weekly 12 capsule 3 02/26/20 Active Ergocalciferol, 45859 x 12 weeks then 17 units capsule [...] Description 06/30/2017 Appointment Rheumatology Jj Pruitt MD [address] [place] [address] [address] [place] [address] [phone] (Fax) 07/27/2017 Appointment Oncology 07/27/2017 Appointment Oncology Trey Figueroa MD [address] [place] [phone] (Fax) 10/08/2017 Appointment Obstetrics and Gynecology Nica Cerna MD [address] [place] [address] [phone] (Fax) 10/25/2017 Appointment Pulmonology Zbigniew Wilkins MD [address] [place] [address] [phone] (Fax) 11/22/2017 Appointment Radiology Health Maintenance Due [...] Address Group MEDICARE MEDICARE A AND B [id number] [phone] [address] [place] [address] [employer] [id number] [phone] [employer] [place] [id number] Home: [address] [facility] [phone] [place] [id number]
--- NOTE | 2017-05-17 20:56 | HP ---
Chief Complaint - Chief Complaint Date of Service: 05/17/17 Time of Service: 20:56 Chief Complaint: sore throat, weakness History of Present Illness: Kristyn is a 77 year old female with a PMH of COPD, PE, DVT, PNA, RA and HTN who presented to the ER with c/o sore throat and weakness. ER workup revealed positive rapid strep test, lactic acid high at 2.0, UA suspecious for infection , and K+ 3.1. SBP dropped into the 90s while in the ER and patient was given aggressive iv fluid hydration. denies cp. c/o dyspnea. states po intake has been poor. chest xray negative for any acute changes. After receiving 2+ liter of IV fluids, one dose of iv rocephin and one dose of iv steroids, pt states that she is feeling much better. Patient has been admitted for strep throat, hypotension, lactic acidosis and weakness. - Patient's Past Medical History Patient History - Medical: Rheumatoid Arthritis, UTI'S Patient History - Cardiac/Respiratory: COPD, Deep Vein Thrombosis, Hypertension , Pulmonary Embolism, Pneumonia Patient History - Cancer: No Hx of Cancer Patient History - Surgical Procedures: Appendectomy, Other Patient History - Other: Immunosuppresive Tx >3mo LMP (females 10-50): unknown - Family History Father Family History - Medical: Family History - Cardiac/Respiratory: Aneurysm, Coronary Heart Disease Children Family History - Medical: Family History - Cardiac/Respiratory: Pulmonary Embolism - Social History Living Situations: spouse Psych History: No pertinent hx Smoking Status: Never smoker Have you smoked in the past 12 months: No Do you dip or chew tobacco: No Patient requests Smoking Cessation Consult: No Initiate information on Smoking Cessation: No Alcohol Use: none Drug Use: none - Immunizations Immunizations Up to Date: Yes Hx Pneumococcal Vaccination: Yes History of Influenza Vaccine: No Review Of Systems (GEN) - Review of Systems Generalized/Overall Review: Present: Weakness, Chills, Fever, Malaise, Fatigue EENTM: Present: Throat Pain Respiratory: Present: Cough, Shortness of Breath. Absent: Orthopnea, Stridor, Wheezing Cardiac: Present: No Symptoms Reported Abdominal: Present: No Symptoms Reported Genitourinary: Present: No Symptoms Reported Musculoskeletal: Present: No Symptoms Reported Neurological: Present: No Symptoms Reported Skin: Present: No Symptoms Reported Endocrine: Present: No Symptoms Reported Misc: All systems neg except as marked Allergies/Adverse Reactions: Allergies Allergy/AdvReac Type Severity Reaction Status Date / Time Gold Salts Allergy Intermediate Hives Verified 05/17/17 11:09 Iodinated Contrast Media - Allergy Intermediate Swelling Verified 05/17/17 11:09 Oral and of Face [Iodinated Contrast Media - IV Dye] Home Medications: HOME MEDICATIONS Leflunomide 20 mg PO DAILY 12/11/16 [Last Taken 12/31/16 09:00 20] Losartan Potassium [Cozaar] 50 mg PO BID 12/11/16 [Last Taken 12/31/16 09:00 50] Metoprolol Tartrate [Lopressor] 100 mg PO BID 12/11/16 [Last Taken 12/31/16 09: 00 100] sulfaSALAzine [Sulfazine] 500 mg PO BID 12/11/16 [Last Taken 12/31/16 09:00 500] Budesonide/Formoterol Fumarate [Symbicort 160-4.5 Mcg Inhaler] 2 puff IH BID #3 hfa.aer.ad 12/14/16 [Last Taken 12/31/16 09:00] Rivaroxaban [Xarelto] 20 mg PO DAILY #30 tablet 01/01/17 [Last Taken Unknown] Acetaminophen [Tylenol] 500 mg PO BID 05/17/17 [Last Taken Unknown] Aspirin [Aspirin EC] 325 mg PO DAILY 05/17/17 [Last Taken Unknown] Hydrochlorothiazide [Hydrodiuril] 25 mg PO DAILY 05/17/17 [Last Taken Unknown] Umeclidinium Brm/Vilanterol Tr [Anoro Ellipta 62.5-25 Mcg INH] 1 each IH DAILY 05/17/17 [Last Taken Unknown] Exam - Exam Vital Signs: Vital Signs - Last Taken Temp 36.8 C 05/17/17 15:30 Pulse 80 05/17/17 17:03 Resp 18 05/17/17 15:30 BP 149/70 05/17/17 17:03 Pulse Ox 95 05/17/17 17:03 Constitutional: Present: Alert, Oriented x3, Cooperative, No distress ENT Exam: Present: hearing grossly normal, pharyngeal erythema Eye Exam: bilateral eye: normal inspection Neck: Present: supple, lymphadenopathy (R), lymphadenopathy (L) Breasts: Present: Exam deferred Respiratory: Present: lungs clear, normal breath sounds, no respiratory distress , no accessory muscle use Cardiovascular/Chest: Present: normal peripheral pulses, regular rate, rhythm, no chest tenderness Peripheral Pulses: dorsalis-pedis (R): 2+, dorsalis-pedis (L): 2+, radial (R): 2 +, radial (L): 2+ Abdomen: Present: soft, nontender, nondistended /Rectal: Present: Exam deferred Extremity: Present: non-tender, normal inspection Skin Exam: Present: normal color, warm/dry, no cyanosis Diagnostic Studies: Laboratory Results WBC 10.4 K/mm3 (4.0-10.5) 05/17/17 11:30 RBC 3.79 M/mm3 (4.2-5.4) L 05/17/17 11:30 Hgb 12.2 gm/dL (12.5-16.0) L 05/17/17 11:30 Hct 36.2 % (37.0-47.0) L 05/17/17 11:30 MCV 95.5 fl (78-100) 05/17/17 11:30 MCH 32.2 pg (27-31) H 05/17/17 11:30 MCHC 33.7 g/dl (32-36) 05/17/17 11:30 RDW 13.0 % (11.5-14.0) 05/17/17 11:30 Plt Count 172 K/mm3 (150-450) 05/17/17 11:30 MPV 10.8 fl (6.0-9.5) H 05/17/17 11:30 Immature Gran % (Auto) 0.40 % (0.001-0.429) 05/17/17 11:30 Immature Gran # (Auto) 0.04 K/mm3 (0.000-0.0310) H 05/17/17 11:30 Neutrophils % 77.8 % (42-75.0) H 05/17/17 11:30 Lymphocytes % 11.9 % (20-51) L 05/17/17 11:30 Monocytes % 6.8 % (0.0-9) 05/17/17 11:30 Eosinophils % 2.3 % (0.0-3.0) 05/17/17 11:30 Basophils % 0.8 % (0.0-1.0) 05/17/17 11:30 Nucleated RBC % 0.0 k/mm3 (0-1) 05/17/17 11:30 Neutrophils # 8.1 K/mm3 (1.3-6.0) H 05/17/17 11:30 Lymphocytes # 1.2 k/mm3 (1.5-3.5) L 05/17/17 11:30 Monocytes # 0.7 k/mm3 (0.0-1.0) 05/17/17 11:30 Eosinophils # 0.2 k/mm3 (0.0-0.7) 05/17/17 11:30 Absolute Basophils 0.1 k/mm3 (0.0-0.1) 05/17/17 11:30 Sodium 136 mmol/L (132-142) 05/17/17 11:30 Plasma Sodium 137 mmol/L (130-142) 05/17/17 11:30 Potassium 3.1 mmol/L (3.4-4.6) L 05/17/17 11:30 Chloride 98 mmol/L (97-106) 05/17/17 11:30 Carbon Dioxide 29.6 mmol/L (24-32.6) 05/17/17 11:30 Anion Gap 11.5 mmol/L (6.8-13.8) 05/17/17 11:30 BUN 14 mg/dL (3-23) 05/17/17 11:30 Creatinine 1.32 mg/dL (0.4-1.4) 05/17/17 11:30 Est GFR (Non-Af Amer) 42 mL/min (60-130) L 05/17/17 11:30 BUN/Creatinine Ratio 10.6 (9.0-21.6) 05/17/17 11:30 Random Glucose 147 mg/dL (70-110) H 05/17/17 11:30 Lactic Acid, Venous 1.5 mmol/L (0.4-1.9) 05/17/17 14:50 Calcium 8.9 mg/dL (7.9-10.9) 05/17/17 11:30 Calcium Adj for Albumin 9.2 mg/dL (8.4-10.2) 05/17/17 11:30 Total Bilirubin 0.6 mg/dL (0.0-1.1) 05/17/17 11:30 AST 14 U/L (0-48) 05/17/17 11:30 ALT 14 U/L (19-67) L 05/17/17 11:30 Alkaline Phosphatase 71 U/L (50-170) 05/17/17 11:30 Troponin I Less than 0.017 ng/ml (0.00-0.10) 05/17/17 11:30 Total Protein 7.4 gm/dL (6.2-8.2) 05/17/17 11:30 Albumin 3.2 gm/dl (3.4-5.0) L 05/17/17 11:30 Procalcitonin 0.07 ng/mL (0.05-0.50) 05/17/17 11:30 Urine Color Yellow 05/17/17 13:10 Urine Appearance Clear 05/17/17 13:10 Urine pH 7.0 pH (5.0-7.0) 05/17/17 13:10 Ur Specific Camilla 1.010 SP.GR. (1.005-1.010) 05/17/17 13:10 Urine Protein 30 mg/dL (NEGATIVE) H 05/17/17 13:10 Urine Glucose (UA) Negative mg/dL (NEGATIVE) 05/17/17 13:10 Urine Ketones Negative mg/dL (NEGATIVE) 05/17/17 13:10 Urine Blood Negative /ul (NEGATIVE) 05/17/17 13:10 Urine Nitrate Negative (NEGATIVE) 05/17/17 13:10 Urine Bilirubin 1 mg/dl (NEGATIVE) H 05/17/17 13:10 Urine Ictotest Negative (NEGATIVE) 05/17/17 13:10 Prot Sulfosalicylic Acd 1+ mg/dL (0) 05/17/17 13:10 Urine Urobilinogen Normal EU/dl (NORMAL) 05/17/17 13:10 Ur Leukocyte Esterase 500 /ul (NEGATIVE) H 05/17/17 13:10 Urine RBC None seen /hpf (0-5) 05/17/17 13:10 Urine WBC 5-10 /hpf (0-5) H 05/17/17 13:10 Ur Epithelial Cells 5-10 /hpf (0-5) H 05/17/17 13:10 Urine Bacteria 1+ (NONE) H 05/17/17 13:10 Urine Culture Comments Culture to follow 05/17/17 13:10 Group A Strep Rapid Positive (NEGATIVE) H 05/17/17 11:25 Assessment/Plan - Narrative Narrative: Strep throat - given one dose of rocephin iv in ER - will likely need discharged with keflex or similar antibiotic - given one dose of iv steroids in ER - has drastically helped sore throat, per pt - ? discharge is short course of prednisone ? - encourage po intake hypotension - likely secondary to poor oral intake and continuation of hypertensive medications - has improved significantly with aggressive iv hydration - continue NS at 125 ml /hr overnight - encourage po intake lactic acidosis - like secondary to hypotension, dehydration and infection - do not see evidence of sepsis - lactic acid already back to normal with aggressive iv hydration hypokalemia - likely secondary to poor oral intake - replace with oral KCl - recheck labs in am UTI - urine suspicious for UTI - althouth high number of epithelial cells were present - await urine culture - Abx for strep throat should cover UTI as well Stable Chronic medical conditions - hx PE on Xarelto - COPD - RA - HTN Code status: Full Code VTE: Xarelto GI Proph: protonix po - Assessment/Plan (1) Strep throat Problem: Acute (2) Hypotension Problem: Acute Qualifiers: Hypotension type: unspecified hypotension type Qualified Code(s): I95.9 - Hypotension, unspecified (3) Lactic acidosis Problem: Acute (4) UTI (urinary tract infection) Problem: Acute Qualifiers: Urinary tract infection type: acute cystitis Hematuria presence: without hematuria Qualified Code(s): N30.00 - Acute cystitis without hematuria (5) Pulmonary embolism Problem: Chronic Qualifiers: Pulmonary embolism type: other Chronicity: unspecified Acute cor pulmonale presence: without acute cor pulmonale Qualified Code(s): I26.99 - Other pulmonary embolism without acute cor pulmonale (6) COPD (chronic obstructive pulmonary disease) Problem: Chronic Qualifiers: COPD type: unspecified COPD Qualified Code(s): J44.9 - Chronic obstructive pulmonary disease, unspecified (7) Rheumatoid arthritis Problem: Chronic Qualifiers: Rheumatoid arthritis location: unspecified site Rheumatoid factor presence : unspecified presence Qualified Code(s): M06.9 - Rheumatoid arthritis, unspecified (8) HTN (hypertension) Problem: Chronic Qualifiers: Hypertension type: essential hypertension Qualified Code(s): I10 - Essential (primary) hypertension (9) Hypokalemia Problem: Acute
[2017-05-17] MEDS: POTASSIUM CHLORIDE 20 MEQ TABLET.SA PO SCH (21:11)
[2017-05-17] MEDS: METOPROLOL TARTRATE 100 MG TABLET PO SCH (21:11)
[2017-05-17] MEDS: sulfaSALAzine 500 MG TABLET PO SCH (21:11)
[2017-05-17] MEDS: ACETAMINOPHEN 500 MG TABLET PO SCH (21:11)
[2017-05-17] MEDS: FLUTICASONE/SALMETEROL 14 PUFF DISK.W.DEV IH SCH (21:18)
[2017-05-18] MEDS: NORMAL SALINE 1,000 ML IV PRN (01:41)
[2017-05-18 06:36] VITALS: BP 127/70
[2017-05-18 06:37] LABS: Anion Gap 9.4 mmol/L (6.8-13.8); BUN/Creatinine Ratio 14.2 (9.0-21.6); Carbon Dioxide 29.4 mmol/L (24-32.6); Estimated Creat Clear 37.3; Potassium 3.8 mmol/L (3.4-4.6)
[2017-05-18] MEDS ORDERED: PANTOPRAZOLE SODIUM 40 MG TABLET.EC PO SCH (07:00)
[2017-05-18] MEDS: ACETAMINOPHEN 500 MG TABLET PO SCH (08:32)
[2017-05-18] MEDS: POTASSIUM CHLORIDE 20 MEQ TABLET.SA PO SCH (08:33)
[2017-05-18] MEDS: METOPROLOL TARTRATE 100 MG TABLET PO SCH (08:33)
[2017-05-18] MEDS: FLUTICASONE/SALMETEROL 14 PUFF DISK.W.DEV IH SCH (08:33)
[2017-05-18] MEDS: sulfaSALAzine 500 MG TABLET PO SCH (08:33)
[2017-05-18] MEDS ORDERED: RIVAROXABAN 20 MG TABLET PO SCH (09:00)
[2017-05-18] MEDS ORDERED: LEFLUNOMIDE 20 MG TABLET PO SCH (09:00)
[2017-05-18] MEDS ORDERED: ASPIRIN 325 MG TABLET.DR PO SCH (09:00)
--- NOTE | 2017-05-18 09:47 | DS ---
(1) Strep throat Problem: Acute (2) Hypokalemia Problem: Resolved Description of Stay: Kristyn is a 77 year old female with a PMH of COPD, PE, DVT, PNA, RA and HTN who presented to the ER with c/o sore throat and generalized weakness. ER workup revealed positive rapid strep test, lactic acid minimally elevated at 2.0, UA suspecious for infection although sample contaminated as evidenced by the presence of squamous epithelial cells, and K+ 3.1. SBP dropped into the 90s while in the ER and patient was given aggressive iv fluid hydration. denies cp. c/o dyspnea, which is a chronic issues. states po intake has been poor secondary to severe throat pain. chest xray negative for any acute changes. After receiving 2+ liter of IV fluids, one dose of iv rocephin and one dose of iv steroids, pt states that she is feeling much better. Patient has been admitted for strep throat, transient hypotension, hyperlactatemia and generalized weakness. Patient received IV fluids overnight and was able to keep down oral food prior to discharge. The morning of discharge, patient felt well enough to go home. Patient encouraged to push oral fluids. Procedures Performed: none Discharge Disposition: Home self care Disposition: Home self-care Condition: Stable Discharge Activity: Activity as tolerated Discharge Diet: Resume usual diet - Push fluids/drink plenty of water Referrals: Amelie Cerna DO [Primary Care Provider] - Problem Oriented Discharge Instructions to Patient/Family: Strep Throat, Easy- to-Read, Dehydration, Adult, [id number], Rehydration, Adult Additional Patient Instructions (free text): Push fluids, such as water. Meds to Stop: 1) Lorsartan - this BP pill may drop your blood pressure too low. 2) HCTZ - this BP pill may drop your blood pressure too low At your follow up with Dr Cerna, will re-address these blood pressure pills. New medications: 1) Keflex 500 mg 2 times a day (antibiotic) 2) Prednisone 40 mg once a day (steroid) - Take with food! Follow up with Dr. Cerna as previously scheduled in June. If issues or concerns arise in the meantime, the patient was instructed to call Dr. Cerna's office. Prescriptions (Any new or edited meds): Cephalexin Monohydrate [Keflex] 500 mg PO BID #14 cap predniSONE [Prednisone] 2 tab PO DAILY #10 tab Complete Home Medications List: Complete Home Medication List: Leflunomide 20 mg PO DAILY 12/11/16 Metoprolol Tartrate [Lopressor] 100 mg PO BID 12/11/16 sulfaSALAzine [Sulfazine] 500 mg PO BID 12/11/16 Budesonide/Formoterol Fumarate [Symbicort 160-4.5 Mcg Inhaler] 2 puff IH BID #3 hfa.aer.ad 12/14/16 Rivaroxaban [Xarelto] 20 mg PO DAILY #30 tablet 01/01/17 Acetaminophen [Tylenol] 500 mg PO BID 05/17/17 Aspirin [Aspirin EC] 325 mg PO DAILY 05/17/17 Umeclidinium Brm/Vilanterol Tr [Anoro Ellipta 62.5-25 Mcg INH] 1 each IH DAILY 05/17/17 Cephalexin Monohydrate [Keflex] 500 mg PO BID #14 cap 05/18/17 predniSONE [Prednisone] 2 tab PO DAILY #10 tab 05/18/17
== END 2017-05-18 11:40 | disposition home or self-care (01) ==
LOC: ER 11:00 → MS 14:58
PROVIDERS: ADMIT Allergy & Immunology; ATTEND Internal Medicine
DX: E87.6 Hypokalemia (principal); I10 Essential (primary) hypertension; E87.2 Acidosis; J44.9 Chronic obstructive pulmonary disease, unspecified; M06.9 Rheumatoid arthritis, unspecified; Z86.718 Personal history of other venous thrombosis and embolism
CPT/HCPCS: 36415; 71020; 80048; 80053; 81001; 83605; 84145; 84484; 85025; 87040; 87086; 87430; 93005; 96365; 96375; 99284; G0378

== ENCOUNTER 2017-09-15 12:26 | Emergency (ER) | payer MEDICARE, OTHER ==
[2017-09-15] MEDS ORDERED: METHYLPREDNISOLONE ACETATE 80 MG/ML VIAL IM ONE (13:33)
[2017-09-15] MEDS ORDERED: METHYLPREDNISOLONE ACETATE 80 MG/ML VIAL ONE ×2 (14:24→14:37)
[2017-09-15 15:12] LABS: Urine Bilirubin Negative (NEGATIVE); Urine Blood Negative /ul (NEGATIVE); Urine Ketone Negative (NEGATIVE); Urine Nitrite Negative (NEGATIVE); Urine Protein Negative (NEGATIVE); Urine Urobilinogen Normal (NORMAL)
--- NOTE | 2017-09-15 15:22 | ERNOTE ---
Back Pain ER HPI Date of Service: 09/15/17 Presenting Symptoms: hx chronic back pain Time Seen by Provider: 09/15/17 13:15 Source: patient Exam Limitations: no limitations Immunizations: IMMUNIZATION HX Immunizations Up to Date Yes History of Influenza Vaccine Yes Hx Pneumococcal Vaccination Yes Allergies/Adverse Reactions: Allergies Gold Salts Allergy (Intermediate, Verified 09/15/17 12:39) Hives Iodinated Contrast- Oral and IV Dye [Iodinated Contrast Media - IV Dye] Allergy (Intermediate, Verified 09/15/17 12:39) Swelling of Face Home Medications: HOME MEDICATIONS Leflunomide 20 mg PO DAILY 12/11/16 [Last Taken 12/31/16 09:00 20] Metoprolol Tartrate [Lopressor] 100 mg PO BID 12/11/16 [Last Taken 12/31/16 09: 00 100] sulfaSALAzine [Sulfazine] 1,000 mg PO DAILY 12/11/16 [Last Taken 12/31/16 09:00 500] Budesonide/Formoterol Fumarate [Symbicort 160-4.5 Mcg Inhaler] 2 puff IH BID #3 hfa.aer.ad 12/14/16 [Last Taken 12/31/16 09:00] Acetaminophen [Tylenol] 500 mg PO BID 05/17/17 [Last Taken Unknown] Umeclidinium Brm/Vilanterol Tr [Anoro Ellipta 62.5-25 Mcg INH] 1 each IH DAILY 05/17/17 [Last Taken Unknown] Hydrochlorothiazide [Hydrodiuril] 25 mg PO DAILY 08/20/17 [Last Taken Unknown] Potassium Chloride [Klor-Con M10] 10 meq PO DAILY 08/20/17 [Last Taken Unknown] Warfarin Sodium [Coumadin] 5 mg PO DAILY 08/20/17 [Last Taken Unknown] traMADol HCL [Tramadol HCl] 50 mg PO DAILY #20 tablet 09/15/17 [Last Taken Unknown] Narrative: Pt. comes in with c/o chronic back pain that has worsened over the past two weeks and is causing pain in her R buttock and occasional numbness of her L hand. Pt. is not having any numbness at this time but is having a great deal of pain. Pt. denies any incontinence, or numbness in feet but does state that she has had urgency and frequency. pt. denies any alleviating factors despite taking 1000mg of Tylenol every 12 hours. Review of Systems - Review of Systems Constitutional: Present: no symptoms reported. Absent: recent illness, fever, chills, weakness, fatigue, malaise EYE: Present: no symptoms reported ENT: Present: no symptoms reported Respiratory: Present: no symptoms reported. Absent: shortness of breath, cough , wheezing Cardiology: Present: no symptoms reported. Absent: chest pain, palpitations, edema Gastrointestinal/Abdominal: Present: no symptoms reported. Absent: nausea, vomiting, diarrhea Genitourinary: Present: no symptoms reported Musculoskeletal: Present: back pain. Absent: neck pain, joint pain Skin: Present: no symptoms reported Neurological: Present: numbness - L hand occasional, tingling - L hand All Other Systems: All systems neg except as marked - Patient's Past Medical History Patient History - Medical: Rheumatoid Arthritis, UTI'S Patient History - Cardiac/Respiratory: COPD, Deep Vein Thrombosis, Hypertension , Pulmonary Embolism, Pneumonia Patient History - Cancer: No Hx of Cancer Patient History - Surgical Procedures: Appendectomy, Other Patient History - Other: Immunosuppresive Tx >3mo LMP (females 10-50): Menopausal - Family History Father Family History - Medical: Family History - Cardiac/Respiratory: Aneurysm, Coronary Heart Disease Children Family History - Medical: Family History - Cardiac/Respiratory: Pulmonary Embolism - Social History Living Situations: home Psych History: No pertinent hx - Immunizations Immunizations Up to Date: Yes Hx Pneumococcal Vaccination: Yes History of Influenza Vaccine: Yes Physical Exam - Physical Exam General Appearance: Present: wd/wn, alert, no apparent distress Head Exam: Present: normal inspection, no evidence of injury Eye Exam: Normal inspection: bilateral, PERRL: bilateral, EOMI: bilateral Neck: Present: supple, limited range of motion - rotation, tender posterior midline - C3-T2. Absent: tender lateral Respiratory: Present: no respiratory distress, normal breath sounds, no accessory muscle use, chest nontender, lungs clear Cardiovascular/Chest: Present: regular rate, rhythm, no murmur, normal peripheral pulses Gastrointestinal/Abdominal: Present: normal bowel sounds, nontender, nondistended, soft, no organomegaly Rectal Exam: Present: normal rectal tone, other - no saddle numbness Back Exam: Present: vertebral tenderness - T12-S1, muscle spasm - R paraspinous and glutteal Extremity Exam: Present: normal inspection, non-tender, normal range of motion, no edema Neurological Exam: Present: alert, oriented, normal mood/affect, no motor/ sensory deficits - at this time, diet attendant II-XII nml as tested, normal cerebellar test. Absent: motor weakness Skin Exam: Present: normal color, warm/dry. Absent: pallor, skin rash ED Progress - Date and Time Seen: Date and Time: 09/15/17 15:21 As pt. has occasional neurologic symptoms feel that she needs non emergent MRI of back and to return to Dr Wilkes who has done spine procedures in the past for her. - Results and Orders Patient's Lab Results:: I have reviewed the patient's lab results. - Vital Signs Patient's Vital Signs:: I have reviewed the patient's vital signs. Vital Signs: Vital Signs 09/15/17 09/15/17 12:36 15:00 Temperature 36.6 C Pulse Rate 73 65 Respiratory 16 16 Rate Blood Pressure 140/88 127/82 O2 Sat by Pulse 94 97 Oximetry - X-Ray X-Ray #1 X-Ray: c-spine Interpretation: Reviewed by me X-ray Comments: Cervical Complete Min 4 Views* Grossly normal craniocervical junction. Atlantodens interval demonstrates mild degenerative spurring without abnormal widening. Prevertebral soft tissues are normal. Vertebral body heights are maintained, with normal alignment. Facet joints are gross normal alignment. Spinous processes are intact. There is mild to moderate disc space narrowing at C5-C6 and C6-C7 levels. Oblique images demonstrate bilateral C3-C4 neural foraminal encroachment by uncovertebral osteophytes. Lung apices are grossly clear. C2 dens partially obscured but grossly intact. Normal articulation of the C1 lateral masses with C2. IMPRESSION: 1. C5-C6 and C6-C7 level degenerative disc disease. 2. Bilateral C3-C4 neural foraminal encroachment by uncovertebral osteophytes. 3. Additional comments are as above. Electronically signed by Wilbert Wise M.D.. X-Ray #2 X-Ray: lumbosacral Interpretation: Reviewed by me X-ray Comments: Lumbar Complete W/ Obliques *: Five nonrib-bearing lumbar vertebral bodies are noted. The L2 and L3 pedicles are obscured by pedicle screws. Interpediculate distances are normal. Lateral view demonstrates no compression deformity. Normal alignment is seen. Patient is status post posterior lumbar fusion at L2-L3 level, with grossly intact appearance of the hardware. [id number] disc space narrowing suggested at L3-L4, L4-L5 and L5-S1 levels, with endplate degenerative changes and osteophytes. Facet joint degenerative changes noted predominantly affecting the L4-L5 and L5-S1 levels. Oblique images demonstrate no definite signs of spondylolysis. IMPRESSION: 1. No acute osseous finding. 2. Posterior lumbar fusion at L2-L3 level, without definite signs of hardware complication. 3. Multilevel lumbar spine degenerative disc disease. Electronically signed by Wilbert Wise M.D.. X-Ray #3 X-Ray: thoracic Interpretation: Reviewed by me X-ray Comments: Thoracic Complete 3 Views * 12 pairs of thoracic ribs are seen. Pedicles are grossly intact and symmetric. Interpediculate distances are grossly normal. Decreased mineralization of bone suggestive of underlying osteopenia or osteoporosis. Slight anterior wedging of T8 and T9 levels, without definable cortical discontinuity suggestive of probable old injury versus anterior wedging due to underlying degenerative changes or congenital/developmental finding, but correlate clinically for pain/focal tenderness. Grossly normal alignment. Degenerative endplate changes noted throughout the thoracic spine predominantly affecting the mid to lower thoracic spine. Visualized portions of the chest demonstrate calcified granulomas of the right lung and right hilum. IMPRESSION: 1. Multilevel degenerative spondylotic changes of the mid to lower thoracic spine. 2. Slight anterior wedging of T8 and T9 vertebral bodies, which are indeterminate. Correlate clinically for potential insufficiency fracture. If there is a concern for acute fracture, consider follow-up by nonemergent thoracic spine MRI. Electronically signed by Wilbert Wise M.D.. Wilbert Wise MD - Progress/Reassessment Chief Complaint: Back Pain Departure Clinical Impression: Cervical radiculopathy due to degenerative joint disease of spine, Thoracic degenerative disc disease, Lumbosacral facet joint syndrome Sciatica Qualifiers: Laterality: right Qualified Code(s): M54.31 - Sciatica, right side - Departure Disposition: Home self-care Condition: Good Instructions: Facet Syndrome, Sciatica, [id number], Degenerative Disk Disease , Cervical Radiculopathy, [id number] Additional Instructions: Please follow up with Dr Wilkes in 2-3 days. Referrals: Amelie Cerna DO [Primary Care Provider] - Prescriptions: traMADol HCL [Tramadol HCl] 50 mg PO DAILY #20 tablet
[2017-09-15 15:27] LABS: Urine Appearance Clear; Urine Bacteria TRACE; Urine Color Dark Yellow; Urine RBC None Seen /hpf (0-5); Urine WBC None Seen /hpf (0-5)
[2017-09-15 16:55] VITALS: BP 137/78
== END 2017-09-15 16:07 | disposition home or self-care (01) ==
LOC: ER 12:26
DX: M47.22 Other spondylosis with radiculopathy, cervical region (principal); M51.34 Other intervertebral disc degeneration, thoracic region; M12.88 Other specific arthropathies, not elsewhere classified, other specified site; M54.31 Sciatica, right side; Z87.440 Personal history of urinary (tract) infections; Z86.718 Personal history of other venous thrombosis and embolism; Z86.711 Personal history of pulmonary embolism